=== PATIENT | female | born 1945 | race Caucasian/White ===

== ENCOUNTER → 2016-07-06 | Outpatient (CLI) | payer MEDICARE, OTHER ==
[~2016-07-06] MED LIST: ASCO-262 PO; CALC-823 PO; CHOL20003 PO; CYAN500T2 PO; FLEC50TA PO; FOLI0.4T2 PO; GLUC1CAP37 PO; LORA10TA7 PO; MAGN400C PO; OMG1KC PO; RED600TA PO; VITA400C58 PO; WRF2T PO; WRF5T PO
--- NOTE | 2016-07-07 14:17 | Diagnostic Imaging Report ---
Bilateral screening mammogram The current study was also evaluated with a Computer Aided Detection (CAD) system. Indication: Screening. No current complaints stated on the questionnaire. COMPARISON: 06/04/15. FINDINGS: The breasts are composed of scattered fibroglandular densities. There are scattered benign-appearing calcifications seen. There is a 5 mm rounded asymmetry seen in the central aspect of the left CC projection, possibly correlating with a central asymmetry on the MLO view. The right breast demonstrate no definite change. IMPRESSION: Central left breast asymmetry better seen in the CC projection. Focal compression view and ultrasound evaluation is recommended. BI-RADS 0. ACR BI-RADS Category 0: Incomplete. (Needs additional imaging evaluation). Result letter will be mailed to the patient. Note: At least 10% of breast cancer is not imaged by mammography. Dictated by: Dictated on workstation # [id number]
== END ==
LOC: RAD 14:21
PROVIDERS: ATTEND Internal Medicine
DX: Z12.31 Encounter for screening mammogram for malignant neoplasm of breast (principal)

== ENCOUNTER → 2016-07-19 | Outpatient (CLI) | payer MEDICARE, OTHER ==
--- NOTE | 2016-07-19 21:30 | Diagnostic Imaging Report ---
Exam: Ultrasound of the left breast. Indication: Abnormal mammogram. Findings: The screening mammogram performed on 07/06/16 noted asymmetric density in the midportion of the left breast. The diagnostic mammogram performed earlier today failed to show any sign of malignancy in this area. On this exam, there is no discrete solid or cystic mass visualized. I suspect that the asymmetric density seen on the screening mammogram was secondary to superimposition of the fibroglandular tissue. Even so, it may prove worthwhile to have a short-term (6 month) followup left breast mammogram for further study. Impression: 1. There is no evidence for malignancy. Recommendations as above. 2. These results were discussed with JEANETTE Paula. ACR BI-RADS Category 3: Probably benign findings. Result letter will be mailed to the patient. Note: At least 10% of breast cancer is not imaged by mammography. Dictated by: Dictated on workstation # [id number]
--- NOTE | 2016-07-19 21:38 | Diagnostic Imaging Report ---
Diagnostic left mammogram. The current study was also evaluated with a Computer Aided Detection (CAD) system. INDICATION: Abnormal screening mammogram. FINDINGS: The recent screening mammogram performed on 07/06/2016 noted a 5 mm rounded asymmetry in the central portion of the left breast. Compression and rolled views of this area showed the area of increased density is not as conspicuous. I suspect that this density is secondary to superimposition of the fibroglandular tissue. Even so, I would recommend that ultrasound be performed to better evaluate this area. IMPRESSION: There is no evidence of malignancy. Ultrasound would be recommended for further study. ACR BI-RADS Category 0: Incomplete. (Needs additional imaging evaluation). Result letter will be mailed to the patient. Note: At least 10% of breast cancer is not imaged by mammography. Dictated by: Dictated on workstation # [id number]
== END ==
LOC: RAD 13:09
PROVIDERS: ATTEND Internal Medicine
DX: R92.8 Other abnormal and inconclusive findings on diagnostic imaging of breast (principal)
CPT/HCPCS: 76641

== ENCOUNTER → 2017-03-29 | Outpatient (CLI) | payer MEDICARE, OTHER | LOC: RAD 13:58 | PROVIDERS: ATTEND Internal Medicine | DX: G25.0 Essential tremor (principal) | CPT/HCPCS: 70551 ==

== ENCOUNTER 2017-06-14 10:17 | Observation (INO) | payer MEDICARE, OTHER ==
[~2017-06-14] VITALS: Ht 167.6 cm; Wt 59.1 kg
[2017-06-14] MEDS ORDERED: NS IV 500 ML 500 ML IV ONE (10:36)
--- OUTSIDE RECORDS SUMMARY | 2017-06-14 11:08 | XMS REPORT | Continuity of Care Document ---
Author Author [facility] Organization [facility] Address Unknown Phone Unavailable Allergies Active Description Code Type Severity Reaction Onset Reported/Identified Relationship to Patient Clinical Status Yes NKANo Known Allergies NKA Miscellaneous Allergy Unknown N/A 01/07/2007 Medications There is no data. Problems Date Dx Coded Attending Type Code Diagnosis Diagnosed By 04/24/2013 RUY CUMMINGS, GLORIA Leos Ot V76.51 SCREEN MAL NEOP-COLON 06/02/2015 Ot 733.90 06/02/2015 Ot 793.80 06/02/2015 Ot V76.12 06/02/2015 Ot 610.0 06/02/2015 Ot 793.80 06/02/2015 Ot V76.12 06/02/2015 HENRY DPM, JUVENAL Q Ot 719.47 06/02/2015 HENRY DPM, JUVENAL Q Ot 729.5 06/02/2015 HENRY DPM, JUVENAL Q Ot 782.3 06/02/2015 KIM CUMMINGS, MARI Galloway Ot V72.84 06/02/2015 AUBREE RIVERA DO Ot 793.89 06/02/2015 AUBREE RIVERA DO Ot V76.12 06/02/2015 RIDDELANEY VALENZUELA ELECTROMECHANICAL ASSEMBLY TECHNICIAN Ot 793.89 06/06/2015 GLORIA REDMOND MD Ot K44.9 DIAPHRAGMATIC HERNIA WITHOUT OBSTRUCTION 06/06/2015 GLORIA REDMOND MD Ot R13.10 DYSPHAGIA, UNSPECIFIED 06/26/2015 AUBREE RIVERA DO Ot Z12.31 07/06/2016 Ot 793.80 UNSPEC ABNORMAL MAMMOGRAM 07/06/2016 Ot V76.12 OTH SCREEN MAMMO-MALIGN NEOPLASM OF ISMAEL 07/06/2016 HENRY DPM, JUVENAL Q Ot 719.47 JOINT PAIN-ANKLE 07/06/2016 HENRY DPM, JUVENAL Q Ot 729.5 PAIN IN LIMB 07/06/2016 HENRY DPM, JUVENAL Q Ot 782.3 EDEMA 07/06/2016 KIM CUMMINGS, MARI Galloway Ot V72.84 EXAM PRE-OPERATIVE NOS 07/06/2016 AUBREE RIVERA DO Ot 793.89 OTH (ABN) FINDINGS ON RADIOLOGICAL EXAMI 07/06/2016 AUBREE RIVERA DO Ot V76.12 OTH SCREEN MAMMO-MALIGN NEOPLASM OF ISMAEL 07/06/2016 DELANEY MACARIO APRN Ot 793.89 OTH (ABN) FINDINGS ON RADIOLOGICAL EXAMI 07/06/2016 AUBREE RIVERA DO Ot Z12.31 ENCNTR SCREEN MAMMOGRAM FOR MALIGNANT NE 07/06/2016 RUY CUMMINGS, GLORIA Leos Ot R13.10 DYSPHAGIA, UNSPECIFIED 07/06/2016 RUY CUMMINGS, GLORIA Leos Ot Z01.818 ENCOUNTER FOR OTHER PREPROCEDURAL EXAMIN 07/06/2016 AUBREE RIVERA DO Ot Z12.31 ENCNTR SCREEN MAMMOGRAM FOR MALIGNANT NE 07/07/2016 AUBREE RIVERA DO Ot Z12.31 ENCNTR SCREEN MAMMOGRAM FOR MALIGNANT NE 07/07/2016 AUBREE RIVERA DO Ot Z12.31 ENCNTR SCREEN MAMMOGRAM FOR MALIGNANT NE 07/19/2016 AUBREE RIVERA DO Ot R92.2 INCONCLUSIVE MAMMOGRAM 07/20/2016 AUBREE RIVERA DO Ot R92.2 INCONCLUSIVE MAMMOGRAM 07/20/2016 AUBREE RIVERA DO Ot R92.8 OTH ABN AND INCONCLUSIVE FINDINGS ON DX 07/28/2016 AUBREE RIVERA DO Ot Z12.31 ENCNTR SCREEN MAMMOGRAM FOR MALIGNANT NE 08/17/2016 AUBREE RIVERA DO Ot R92.8 OTH ABN AND INCONCLUSIVE FINDINGS ON DX 08/24/2016 MIGUEL HEATH, AUBREE Leyva Ot R92.8 OTH ABN AND INCONCLUSIVE FINDINGS ON DX 03/25/2017 Ot V76.12 OTH SCREEN MAMMO-MALIGN NEOPLASM OF ISMAEL 03/25/2017 HENRY DPM, JUVENAL Q Ot 719.47 JOINT PAIN-ANKLE 03/25/2017 HENRY DPM, JUVENAL Q Ot 729.5 PAIN IN LIMB 03/25/2017 HENRY DPM, JUVENAL Q Ot 782.3 EDEMA 03/25/2017 KIM CUMMINGSMARI Ot V72.84 EXAM PRE-OPERATIVE NOS 03/25/2017 AUBREE RIVERA DO Ot 793.89 OTH (ABN) FINDINGS ON RADIOLOGICAL EXAMI 03/25/2017 AUBREE RIVERA DO Ot V76.12 OTH SCREEN MAMMO-MALIGN NEOPLASM OF ISMAEL 03/25/2017 DELANEY MACARIO APRN Ot 793.89 OTH (ABN) FINDINGS ON RADIOLOGICAL EXAMI 03/25/2017 AUBREE RIVERA DO Ot Z12.31 ENCNTR SCREEN MAMMOGRAM FOR MALIGNANT NE 03/25/2017 GLORIA REDMOND MD Ot R13.10 DYSPHAGIA, UNSPECIFIED 03/25/2017 GLORIA REDMOND MD Ot Z01.818 ENCOUNTER FOR OTHER PREPROCEDURAL EXAMIN 03/25/2017 AUBREE RIVERA DO Ot Z12.31 ENCNTR SCREEN MAMMOGRAM FOR MALIGNANT NE 03/25/2017 AUBREE RIVERA DO Ot R92.8 OTH ABN AND INCONCLUSIVE FINDINGS ON DX 04/21/2017 AUBREE RIVERA DO, Ot G25.0 ESSENTIAL TREMOR 05/17/2017 AUBREE RIVERA DO, Ot G25.0 ESSENTIAL TREMOR Procedures There is no data. Results There is no data. Encounters ACCT No. Visit Date/Time Discharge Status Pt. Type Provider Facility Loc./Unit Complaint [id number] 03/29/2017 13:58:00 03/29/2017 23:59:59 CLS Outpatient AUBREE RIVERA DO [facility] RAD G25 [id number] 07/19/2016 13:09:00 07/19/2016 23:59:59 CLS Outpatient AUBREE RIVERA DO [facility] RAD ABNORMAL MAMMO [id number] 07/06/2016 14:21:00 07/06/2016 23:59:59 CLS Outpatient AUBREE RIVERA DO [facility] RAD SCREENING [id number] 06/06/2015 09:05:00 06/06/2015 11:15:00 DIS Outpatient GLORIA REDMOND MD [facility] SDC DYSPHASIA [id number] 06/04/2015 05:41:00 06/04/2015 23:59:59 CLS Outpatient GLORIA REDMOND MD [facility] PREOP DYSPHASIA [id number] 06/02/2015 10:44:00 06/02/2015 23:59:59 CLS Outpatient AUBREE RIVERA DO [facility] RAD SCREENING [id number] 05/30/2013 13:21:00 05/30/2013 23:59:59 CLS Outpatient DELANEY MACARIO APRN [facility] RAD ABN MAMMO [id number] 05/07/2013 10:21:00 05/07/2013 23:59:59 CLS Outpatient AUBREE RIVERA DO [facility] RAD SCREENING [id number] 04/24/2013 07:22:00 04/24/2013 10:30:00 DIS Outpatient RUY CUMMINGS, GLORIA Leos [facility] SDC SCREENING [id number] 04/19/2013 12:08:00 04/19/2013 23:59:59 CLS Outpatient KIM CUMMINGS, MARI Galloway [facility] PREOP SCREENING [id number] 04/04/2013 12:54:00 04/04/2013 23:59:59 CLS Outpatient HENRY DPM, JUVENAL Q [facility] RAD EDEMA,PAIN R FOOT/LEG [id number] 06/14/2017 10:19:00 ACT Emergency YANG MARCANO MD [facility] ER HIGH HEART RATE [id number] 06/02/2015 10:43:00 Document Registration [id number] 04/25/2012 09:18:00 Document Registration [id number] 04/21/2011 09:02:00 Document Registration [id number] 10/14/2010 10:33:00 Document Registration [id number] 10/12/2010 09:05:00 Document Registration [id number] 01/16/2010 10:01:00 Document Registration
--- NOTE | 2017-06-14 11:46 | Diagnostic Imaging Report ---
EXAMINATION: Portable upright radiograph of the chest. INDICATION: Chest pain. FINDINGS: The lungs are hyperinflated with no focal infiltrate. The heart size is normal. No effusion or pneumothorax. The mediastinum and duyen appear unremarkable. IMPRESSION: Hyperinflated clear lungs. Dictated by: Dictated on workstation # [id number]
--- NOTE | 2017-06-14 11:53 | Diagnostic Imaging Report ---
PROCEDURE: CT head without contrast. TECHNIQUE: Multiple contiguous axial images were obtained through the brain without the use of intravenous contrast. INDICATION: Fall. Head injury. COMPARISON: MRI brain without contrast 03/29/2017. FINDINGS: No intracranial hemorrhage, mass effect, hydrocephalus, or extra-axial fluid collections. No CT evidence of acute infarction. Osseous structures are intact. The visualized paranasal sinuses and mastoids are clear. IMPRESSION: No acute intracranial CT findings. Dictated by: Dictated on workstation # [id number]
[2017-06-14 12:15] LABS: BASOPHILS % (AUTO) 0 % (0-10); EOSINOPHILS # (AUTO) 0.1 10^3/uL (0.0-0.3); EOSINOPHILS % (AUTO) 1 % (0-10); LYMPHOCYTES % (AUTO) 13 % (12-44); MEAN CORPUSCULAR HEMOGLOBIN 31 PG (25-34); MEAN CORPUSCULAR HGB CONC 33 G/DL (32-36); MEAN CORPUSCULAR VOLUME 95 FL (80-99); MEAN PLATELET VOLUME 10.6 FL (7.4-10.4); MONOCYTES # (AUTO) 0.5 X 10^3 (0.0-1.0); MONOCYTES % (AUTO) 7 % (0-12); NEUTROPHILS # (AUTO) 5.7 X 10^3 (1.8-7.8); NEUTROPHILS % (AUTO) 78 % (42-75); PLATELET COUNT 251 10^3/uL (130-400); RED CELL DISTRIBUTION WIDTH 13.4 % (10.0-14.5); WHITE BLOOD COUNT 7.3 10^3/uL (4.3-11.0)
--- NOTE | 2017-06-14 12:16 | ED Cardiac General ---
History of Present Illness General Chief Complaint: Dizziness/Syncope Stated Complaint: HIGH HEART RATE Nursing Triage Note: C/O tachycardia. Onset 0130. Pt had diarrhea around 0730 with syncopal episode while on the toilet. Source: patient Exam Limitations: no limitations History of Present Illness Time seen by provider: 10:22 Initial Comments Here with report of acute onset of tachycardia this morning. Does have history of this. This started about 130. At 730, she had a syncopal episode after a diarrhea or loose stool event. She completely passed out. Her found her on the floor within seconds. She states she did not hit her head but the believes that she did just by the way that she was laying in the sound that she made when she fell. She fell from the sitting position. Denies other injury. She is on blood thinners for the tachycardia as well as history of PE and protein s deficiency. Denies breathing problems. Does complain of weakness currently. Noted that her blood pressure was lower this morning. She is on flecainide for this. She took her flecainide after breakfast this morning. Timing/Duration: 12 hours Severity: moderate Prior CP/Workup: pulmonary embolism, stress test NTG SL FINGERPRINT TECHNICIAN: No ASA po FINGERPRINT TECHNICIAN: No Associated Systoms: No Chest Pain, No Cough, No Diaphoresis, No Fever/Chills, No Nausea/Vomiting, No Shortness of Air, Syncope, Weakness Allergies and Home Medications Allergies Coded Allergies: No Known Allergies (Verified Allergy, Unknown, 01/07/07) Home Medications Ascorbate Calcium 500 Mg Tablet, 500 MG PO DAILY, (Reported) Calcium Carbonate 500 Mg Tablet, 750 MG PO DAILY WITH SUPPER, (Reported) TAKE 1 1/2 OF 500MG TAB Cholecalciferol (Vitamin D3) 2,000 Unit Capsule, 2,000 UNIT PO DAILY, (Reported) Cyanocobalamin (Vitamin B-12) 500 Mcg Tablet, 500 MCG PO DAILY, (Reported) Flecainide Acetate 50 Mg Tablet, 50 MG PO TID, (Reported) Folic Acid 0.4 Mg Tablet, 0.4 MG PO DAILY, (Reported) Glucosa Barraza 2Kcl/Chondroitin Barraza 1 Each Capsule, 1 EACH PO DAILY, (Reported) Loratadine 10 Mg Tablet, 10 MG PO DAILY, (Reported) Magnesium Oxide 400 Mg Capsule, 400 MG PO DAILY, (Reported) [place] 3 Polyunsat Fatty Acids 1,000 Mg Cap, 1,000 MG PO DAILY, (Reported) Red Yeast Rice 600 Mg Tablet, 1,200 MG PO DAILY, (Reported) TAKE 2 (600MG) TABS Vitamin E Mixed 400 Unit Capsule, 400 UNIT PO DAILY, (Reported) Warfarin Sodium 5 Mg Tablet, 2.5 MG PO DAILY@1800, (Reported) TAKE 1/2 OF 5MG TAB Review of Systems Constitutional: see HPI, No chills, No fever, weakness EENTM: No Symptoms Reported Respiratory: No Symptoms Reported Cardiovascular: No Symptoms Reported Gastrointestinal: See HPI, Diarrhea, Denies Nausea, Denies Vomiting Genitourinary: No Symptoms Reported Musculoskeletal: see HPI Skin: no symptoms reported Psychiatric/Neurological: See HPI, Weakness Endocrine: No Symptoms Reported All Other Systems Reviewed Negative Unless Noted: Yes Past Yuymvbr-Brmurb-Fjnwgc Hx Patient Social History Alcohol Use: Denies Use Recreational Drug Use: No Smoking Status: Never a Smoker Recent Foreign Travel: No Contact w/Someone Who Travel: No Recent Infectious Disease Expo: No Recent Hopitalizations: No (COLONOSCOPY) Immunizations Up To Date Date of Pneumonia Vaccine: Apr 24, 2009 Date of Influenza Vaccine: Apr 16, 2015 Surgeries History of Surgeries: Yes Respiratory History of Respiratory Disorde: No Cardiovascular History of Cardiac Disorders: Yes Neurological History of Neurological Disord: No Reproductive System Hx Reproductive Disorders: No Gastrointestinal History of Gastrointestinal Di: No Musculoskeletal History of Musculoskeletal Dis: No Endocrine History of Endocrine Disorders: No Psychosocial History of Psychiatric Problem: No Reviewed Nursing Assessment Reviewed/Agree w Nursing PMH: Yes Family Medical History Significant Family History: No Pertinent Family Hx Physical Exam Vital Signs Vital Sign - Last 12Hours 06/14/17 10:50 Temp 97.5 Pulse 120 Resp 20 B/P (MAP) 120/84 (96) O2 Delivery Room Air Capillary Refill : Less Than 3 Seconds General Appearance: No Apparent Distress, WD/WN HEENT: PERRL/EOMI, Pharynx Normal Neck: Non Tender, Supple Respiratory: Lungs Clear, Normal Breath Sounds Cardiovascular: No Murmur, Tachycardia Gastrointestinal: Non Tender, Soft Extremity: Normal Range of Motion, Non Tender Neurologic/Psychiatric: Alert, Oriented x3, No Motor/Sensory Deficits Skin: Normal Color, Warm/Dry Progress/Results/Core Measures Results/Orders Lab Results Laboratory Tests Test 06/14/17 11:50 Range/Units White Blood Count 7.3 4.3-11.0 10^3/uL Red Blood Count 4.10 L 4.35-5.85 10^6/uL Hemoglobin 12.8 11.5-16.0 G/DL Hematocrit 39 35-52 % Mean Corpuscular Volume 95 80-99 FL Mean Corpuscular Hemoglobin 31 25-34 PG Mean Corpuscular Hemoglobin Concent 33 32-36 G/DL Red Cell Distribution Width 13.4 10.0-14.5 % Platelet Count 251 130-400 10^3/uL Mean Platelet Volume 10.6 H 7.4-10.4 FL Neutrophils (%) (Auto) 78 H 42-75 % Lymphocytes (%) (Auto) 13 12-44 % Monocytes (%) (Auto) 7 0-12 % Eosinophils (%) (Auto) 1 0-10 % Basophils (%) (Auto) 0 0-10 % Neutrophils # (Auto) 5.7 1.8-7.8 X 10^3 Lymphocytes # (Auto) 1.0 1.0-4.0 X 10^3 Monocytes # (Auto) 0.5 0.0-1.0 X 10^3 Eosinophils # (Auto) 0.1 0.0-0.3 10^3/uL Basophils # (Auto) 0.0 0.0-0.1 10^3/uL Prothrombin Time 21.6 H 12.2-14.7 SEC INR Comment 1.9 H 0.8-1.4 Activated Partial Thromboplast Time 29 24-35 SEC Sodium Level 141 135-145 MMOL/L Potassium Level 4.3 3.6-5.0 MMOL/L Chloride Level 106 98-107 MMOL/L Carbon Dioxide Level 28 21-32 MMOL/L Anion Gap 7 5-14 MMOL/L Blood Urea Nitrogen 22 H 7-18 MG/DL Creatinine 0.71 0.60-1.30 MG/DL Estimat Glomerular Filtration Rate > 60 BUN/Creatinine Ratio 31 Glucose Level 74 70-105 MG/DL Calcium Level 9.1 8.5-10.1 MG/DL Magnesium Level 2.1 1.8-2.4 MG/DL Total Bilirubin 0.6 0.1-1.0 MG/DL Aspartate Amino Transf (AST/SGOT) 23 5-34 U/L Alanine Aminotransferase (ALT/SGPT) 16 0-55 U/L Alkaline Phosphatase 87 40-136 U/L Myoglobin 46.6 10.0-92.0 NG/ML Troponin I < 0.30 <0.30 NG/ML Total Protein 6.3 L 6.4-8.2 GM/DL Albumin 3.8 3.2-4.5 GM/DL My Orders Orders - YANG MARCANO MD Ekg Tracing (06/14/17 10:21) Cbc With Automated Diff (06/14/17 10:36) Magnesium (06/14/17 10:36) Chest 1 View, Ap/Pa Only (06/14/17 10:36) Cardiac Profile 1 (06/14/17 10:36) Comprehensive Metabolic Panel (06/14/17 10:36) Myoglobin Serum (06/14/17 10:36) Protime With Inr (06/14/17 10:36) Partial Thromboplastin Time (06/14/17 10:36) O2 (06/14/17 10:36) Monitor-Rhythm Ecg Trace Only (06/14/17 10:36) Lipid Panel (06/15/17 06:00) Saline Lock/Iv-Start (06/14/17 10:36) Ns Iv 500 Ml (Sodium Chloride 0.9%) (06/14/17 10:36) Ct Head Wo (06/14/17 10:57) Metoprolol Tartrate Injection (Lopressor (06/14/17 12:30) Medications Given in ED Current Medications Medications Dose Ordered Sig/Yeimi Route Start Time Stop Time Status Last Admin Dose Admin Metoprolol Tartrate 5 mg ONCE ONCE IV 06/14/17 12:30 06/14/17 12:31 DC 06/14/17 12:34 5 MG Sodium Chloride 500 ml @ 0 mls/hr Q0M ONCE IV 06/14/17 10:36 06/14/17 10:38 DC 06/14/17 10:50 0 MLS/HR Vital Signs/I&O Vital Sign - Last 12Hours 06/14/17 10:50 Temp 97.5 Pulse 120 Resp 20 B/P (MAP) 120/84 (96) O2 Delivery Room Air Blood Pressure Mean: 96 Progress Note : Progress Note Seen and evaluated. IV, labs, EKG and chest x-ray ordered. No ASA as patient does not have chest pain. She is on Coumadin. CT head ordered. Monitor patient. CT and chest x-ray are negative. Labs look okay. Patient still a little wobbly when standing. I did speak with Dr. Peña and he is recommending Lopressor 5 mg IV. This was ordered. Her rate came down briefly but then returned back to the upper one teens. I did discuss all the findings and concerns with the patient and family. I do have concerns related to the need for adjustments of her medications. She has agreed to observation admission. I did discuss the case with Dr. Valdes at 1321. She will admit the patient, observation status with Dr. Peña on consult. ECG Initial ECG Impression Date: Jun 14, 2017 Initial ECG Impression Time: 10:21 Initial ECG Rate: 119 Initial ECG Rhythm: S.Tach Comment Sinus tachycardia with inferior Q waves. No evidence of ST elevation MN. Normal axis. No previous available for comparison. Interpreted by me. Diagnostic Imaging Diagonstic Imaging: CT Plain Films/CT/US/NM/MRI: head Comments [facility] [place], [place] NAME: REKHA SHETH [facility] REC#: [id number] PT STATUS: REG ER : 1945 PHYSICIAN: YANG MARCANO MD ADMIT DATE: 06/14/17/ER Draft Date of Exam:06/14/17 CT HEAD WO PROCEDURE: CT head without contrast. TECHNIQUE: Multiple contiguous axial images were obtained through the brain without the use of intravenous contrast. INDICATION: Fall. Head injury. COMPARISON: MRI brain without contrast 03/29/2017. FINDINGS: No intracranial hemorrhage, mass effect, hydrocephalus, or extra-axial fluid collections. No CT evidence of acute infarction. Osseous structures are intact. The visualized paranasal sinuses and mastoids are clear. IMPRESSION: No acute intracranial CT findings. Dictated on workstation # [id number] Dict: 06/14/17 1150 Trans: 06/14/17 1152 [id number] Interpreted by: HELADIO OLIVEIRA MD Electronically signed by: Diagonstic Imaging: Xray Plain Films/CT/US/NM/MRI: chest Comments NAME: REKHA SHETH [facility] REC#: [id number] PT STATUS: REG ER : 1945 PHYSICIAN: YANG MARCANO MD ADMIT DATE: 06/14/17/ER Signed Date of Exam: 06/14/17 CHEST 1 VIEW, AP/PA ONLY EXAMINATION: Portable upright radiograph of the chest. INDICATION: Chest pain. FINDINGS: The lungs are hyperinflated with no focal infiltrate. The heart size is normal. No effusion or pneumothorax. The mediastinum and duyen appear unremarkable. IMPRESSION: Hyperinflated clear lungs. Dictated by: Dictated on workstation # [id number] Dict: 06/14/17 1139 Trans: 06/14/17 1157 Interpreted by: ALPHONSE JENKINS MD Electronically signed by: ALPHONSE JENKINS MD 06/14/17 1157 Departure Communication (Admissions) Time/Spoke to Admitting Phy: 13:21 Time/Spoke to Consulting Phy: 12:12 Impression Impression: Primary Impression: Tachycardia, paroxysmal Additional Impression: Syncope Qualified Codes: R55 - Syncope and collapse Disposition: ADMITTED INPATIENT Condition: Stable Admissions Decision to Admit Reason: Admit from ER (General) Decision to Admit/Date: Jun 14, 2017 Time/Decision to Admit Time: 13:21 Departure-Patient Inst. Referrals: AUBREE RIVERA DO (PCP/Family) Primary Care Physician YANG MARCANO MD Jun 14, 2017 12:16
[2017-06-14 12:25] LABS: INR 1.9 (0.8-1.4); PROTHROMBIN TIME PATIENT 21.6 SEC (12.2-14.7)
[2017-06-14] MEDS ORDERED: meTOprolol 5 MG/5 ML (LOPRESSOR) VIAL IV ONE (12:30)
[2017-06-14 12:34] LABS: ALANINE AMINOTRANSFERASE 16 U/L (0-55); ALBUMIN 3.8 GM/DL (3.2-4.5); ANION GAP 7 MMOL/L (5-14); ASPARTATE AMINO TRANSFERASE 23 U/L (5-34); BILIRUBIN,TOTAL 0.6 MG/DL (0.1-1.0); BLOOD UREA NITROGEN 22 MG/DL (7-18); BUN/CREATININE RATIO 31; CALCIUM 9.1 MG/DL (8.5-10.1); CARBON DIOXIDE 28 MMOL/L (21-32); CHLORIDE 106 MMOL/L (98-107); CREATININE SERUM 0.71 MG/DL (0.60-1.30); GFR ESTIMATED > 60; GLUCOSE 74 MG/DL (70-105); MAGNESIUM 2.1 MG/DL (1.8-2.4); POTASSIUM 4.3 MMOL/L (3.6-5.0); SODIUM 141 MMOL/L (135-145); TOTAL PROTEIN 6.3 GM/DL (6.4-8.2)
[2017-06-14 12:43] LABS: MYOGLOBIN SERUM 46.6 NG/ML (10.0-92.0)
--- NOTE | 2017-06-14 14:01 | History & Physical-Hospitalist ---
HPI History of Present Illness: HPI/Chief Complaint Pt is a 72yoCF with a PMH of sinus tachycardia on flecainide, protein S deficiency, h/o of DVT and PE on warfarin who presented to the ER after passing out at home. She reports she awoke this morning at 0130 with her heart racing. She was able to go back to sleep but when she awoke she continued to feel palpitations. She believed her pulse to be around 100. She felt well enough to eat but quickly felt sick to her stomach and went to the bathroom where she had a large volume loose stool. She began to feel very warm and then passed out. Her reports hearing her fall and going to check on her. He found her on the ground at that time. They believe that she was out for around 5-10s. On arrival her she was found to be tachycardiac in the 120s. She was given IV Lopressor but her rate only improved to the 110s. She denies chest pain or SOB. Source: patient Date Seen 06/14/17 Time Seen by Provider: 13:25 Attending Physician Ebony Valdes MD PCP Artur Gatica DO Referring Physician Date of Admission Jun 14, 2017 at 13:24 Home Medications & Allergies Home Medications Reviewed patient Home Medication Reconciliation Form Allergies Allergies Coded Allergies NKANo Known Allergies (Verified Allergy, Unknown, 01/07/07) Past Zzextar-Uqamyc-Gsmnst Hx Patient Social History Alcohol Use: Denies Use Recreational Drug Use: No Smoking Status: Never a Smoker Recent Foreign Travel: No Contact w/other who traveled: No Recent Hopitalizations: No (COLONOSCOPY) Recent Infectious Disease Expo: No Immunizations Up To Date Date of Pneumonia Vaccine: Apr 24, 2009 Date of Influenza Vaccine: Apr 16, 2015 Surgeries Yes Respiratory No Cardiovascular Yes Neurological No Reproductive System Hx Reproductive Disorders: No Gastrointestinal No Musculoskeletal No Endocrine History of Endocrine Disorders: No Psychosocial History of Psychiatric Problem: No Reviewed Nursing Assessment Reviewed/Agree w Nursing PMH: Yes Family Medical History Significant Family History: No Pertinent Family Hx Review of Systems Constitutional: No chills, No fever EENTM: No blurred vision, No double vision, No nose congestion, No throat pain Respiratory: No cough, No dyspnea on exertion, No short of breath Cardiovascular: No chest pain, No edema, palpitations, syncope Gastrointestinal: abdominal pain, No constipation, diarrhea, No nausea, No vomiting Genitourinary: No dysuria, No frequency Musculoskeletal: No joint pain, muscle pain (calf) Skin: No lesions, No rash Psychiatric/Neurological: Denies Headache, Tingling (baseline peripheral neuropathy) Physical Exam Physical Exam Vital Signs Vital Sign - Last 12Hours 06/14/17 06/14/17 10:50 14:00 Temp 97.5 Pulse 120 Resp 20 B/P (MAP) 120/84 (96) Pulse Ox 97 O2 Delivery Room Air Capillary Refill : Less Than 3 Seconds General Appearance: No Apparent Distress, WD/WN HEENT: PERRL/EOMI, Moist Mucous Membranes Neck: Non Tender, Supple Respiratory: Lungs Clear, No Respiratory Distress Cardiovascular: No JVD, No Murmur, Tachycardia Gastrointestinal: Normal Bowel Sounds, Non Tender, Soft Extremity: Normal Capillary Refill, No Calf Tenderness Neurologic/Psychiatric: Alert, Oriented x3, Normal Mood/Affect Skin: Normal Color, Warm/Dry Results Results/Procedures Lab Laboratory Tests 06/14/17 11:50 06/15/17 05:27 Assessment/Plan Admission Diagnosis Syncope Diagnosis/Problems Diagnosis/Problems (1) Syncope Status: Acute Assessment & Plan: History of sinus tach, follows with Dr. Ruiz Will consult cardiology given symptoms prior syncopal episode Monitor on telemetry Qualifiers: Qualified Codes: R55 - Syncope and collapse (2) Tachycardia, paroxysmal Status: Acute Assessment & Plan: Monitor on telemetry Continue flecainide (3) Right calf pain Status: Chronic Assessment & Plan: History of DVT in that leg INR 1.9 Will get usg (4) Peripheral neuropathy Assessment & Plan: Continue home gabapentin Qualifiers: Qualified Codes: G62.9 - Polyneuropathy, unspecified Clinical Quality Measures AMI/AHF: ASA po Prior to arrival: EBONY Lara MD Jun 14, 2017 14:01
--- OUTSIDE RECORDS SUMMARY | 2017-06-14 14:28 | XMS REPORT | Continuity of Care Document ---
Author Author [facility] Organization [facility] Address Unknown Phone Unavailable Allergies Active Description [...] RIVERA DO Ot V76.12 06/02/2015 RIDDELANEY VALENZUELA CERTIFIED WELDING INSPECTOR Ot 793.89 06/06/2015 GLORIA REDMOND MD Ot [...] FOR OTHER PREPROCEDURAL EXAMIN 03/25/2017 AUBREE RIVERA DO, Ot Z12.31 ENCNTR SCREEN MAMMOGRAM FOR MALIGNANT NE 03/25/2017 AUBREE RIVERA DO Ot R92.8 OTH ABN AND INCONCLUSIVE FINDINGS ON DX 04/21/2017 AUBREE RIVERA DO, Ot G25.0 ESSENTIAL TREMOR 05/17/2017 AUBREE RIVERA DO, Ot G25.0 ESSENTIAL TREMOR Procedures There is no data. Results Test Result Range Complete blood count (CBC) with automated white blood cell (WBC) differential - 06/14/17 11:50 Blood leukocytes automated count (number/volume) 7.3 10*3/uL 4.3-11.0 Blood erythrocytes automated count (number/volume) 4.10 10*6/uL 4.35-5.85 Venous blood hemoglobin measurement (mass/volume) 12.8 g/dL 11.5-16.0 Blood hematocrit (volume fraction) 39 % 35-52 Automated erythrocyte mean corpuscular volume 95 [foz_us] 80-99 Automated erythrocyte mean corpuscular hemoglobin (mass per erythrocyte) 31 pg 25-34 Automated erythrocyte mean corpuscular hemoglobin concentration measurement ( mass/volume) 33 g/dL 32-36 Automated erythrocyte distribution width ratio 13.4 % 10.0-14.5 Automated blood platelet count (count/volume) 251 10*3/uL 130-400 Automated blood platelet mean volume measurement 10.6 [foz_us] 7.4-10.4 Automated blood neutrophils/100 leukocytes 78 % 42-75 Automated blood lymphocytes/100 leukocytes 13 % 12-44 Blood monocytes/100 leukocytes 7 % 0-12 Automated blood eosinophils/100 leukocytes 1 % 0-10 Automated blood basophils/100 leukocytes 0 % 0-10 Blood neutrophils automated count (number/volume) 5.7 10*3 1.8-7.8 Blood lymphocytes automated count (number/volume) 1.0 10*3 1.0-4.0 Blood monocytes automated count (number/volume) 0.5 10*3 0.0-1.0 Automated eosinophil count 0.1 10*3/uL 0.0-0.3 Automated blood basophil count (count/volume) 0.0 10*3/uL 0.0-0.1 PT panel in platelet poor plasma by coagulation assay - 06/14/17 11:50 Prothrombin time (PT) in platelet poor plasma by coagulation assay 21.6 s 12.2-14.7 INR in platelet poor plasma or blood by coagulation assay 1.9 0.8-1.4 Activated partial thromboplastin time (aPTT) in platelet poor plasma bycoagulation assay - 06/14/17 11:50 Activated partial thromboplastin time (aPTT) in platelet poor plasma bycoagulation assay 29 s 24-35 Comprehensive metabolic panel - 06/14/17 11:50 Serum or plasma sodium measurement (moles/volume) 141 mmol/L 135-145 Serum or plasma potassium measurement (moles/volume) 4.3 mmol/L 3.6-5.0 Serum or plasma chloride measurement (moles/volume) 106 mmol/L 98-107 Carbon dioxide 28 mmol/L 21-32 Serum or plasma anion gap determination (moles/volume) 7 mmol/L 5-14 Serum or plasma urea nitrogen measurement (mass/volume) 22 mg/dL 7-18 Serum or plasma creatinine measurement (mass/volume) 0.71 mg/dL 0.60-1.30 Serum or plasma urea nitrogen/creatinine mass ratio 31 NRG Serum or plasma creatinine measurement with calculation of estimated glomerular filtration rate > NRG Serum or plasma glucose measurement (mass/volume) 74 mg/dL 70-105 Serum or plasma calcium measurement (mass/volume) 9.1 mg/dL 8.5-10.1 Serum or plasma total bilirubin measurement (mass/volume) 0.6 mg/dL 0.1-1.0 Serum or plasma alkaline phosphatase measurement (enzymatic activity/volume) 87 U/L 40-136 Serum or plasma aspartate aminotransferase measurement (enzymatic activity/ volume) 23 U/L 5-34 Serum or plasma alanine aminotransferase measurement (enzymatic activity/volume ) 16 U/L 0-55 Serum or plasma protein measurement (mass/volume) 6.3 g/dL 6.4-8.2 Serum or plasma albumin measurement (mass/volume) 3.8 g/dL 3.2-4.5 Magnesium - 06/14/17 11:50 Magnesium 2.1 mg/dL 1.8-2.4 Serum or plasma troponin i.cardiac measurement (mass/volume) - 06/14/17 11:50 Serum or plasma troponin i.cardiac measurement (mass/volume) < ng/ mL <0.30 Myoglobin, serum - 06/14/17 11:50 Myoglobin, serum 46.6 ng/mL 10.0-92.0 Encounters ACCT No. Visit Date/Time Discharge Status Pt. Type Provider Facility Loc./Unit Complaint [id number] 03/29/2017 13:58:00 03/29/2017 23:59:59 CLS Outpatient AUBREE RIVERA DO [facility] RAD G25 [id number] 07/19/2016 13:09:00 07/19/2016 23:59:59 CLS Outpatient AUBREE RIVERA DO [facility] RAD ABNORMAL MAMMO [id number] 07/06/2016 14:21:00 07/06/2016 23:59:59 CLS Outpatient AUBREE RIVERA DO [facility] RAD SCREENING [id number] 06/06/2015 09:05:00 06/06/2015 11:15:00 DIS Outpatient GLORIA REDMOND MD [facility] SDC DYSPHASIA [id number] 06/04/2015 05:41:00 06/04/2015 23:59:59 CLS Outpatient GLORIA REDMOND MD [facility] PREOP DYSPHASIA [id number] 06/02/2015 10:44:00 06/02/2015 23:59:59 CLS Outpatient AUBREE RIVERA DO [facility] RAD SCREENING [id number] 05/30/2013 13:21:00 05/30/2013 23:59:59 CLS Outpatient DELANEY MACARIO APRN [facility] RAD ABN MAMMO [id number] 05/07/2013 10:21:00 05/07/2013 23:59:59 CLS Outpatient AUBREE RIVERA DO [facility] RAD SCREENING [id number] 04/24/2013 07:22:00 04/24/2013 10:30:00 DIS Outpatient RUY CUMMINGS, GLORIA Leos [facility] SDC SCREENING [id number] 04/19/2013 12:08:00 04/19/2013 23:59:59 CLS Outpatient KIM CUMMINGS, MARI [place] [facility] PREOP SCREENING [id number] 04/04/2013 12:54:00 04/04/2013 23:59:59 CLS Outpatient HENRY DPM, JUVENAL Q [facility] RAD EDEMA,PAIN R FOOT/LEG [id number] 06/14/2017 13:24:00 ACT Inpatient EBONY MAK MD [facility] 4TH TACHYCARDIA,SYNCOPE [id number] 06/02/2015 10:43:00 Document Registration [id number] 04/25/2012 09:18:00 Document Registration [id number] 04/21/2011 09:02:00 Document Registration [id number] 10/14/2010 10:33:00 Document Registration [id number] 10/12/2010 09:05:00 Document Registration [id number] 01/16/2010 10:01:00 Document Registration
[2017-06-14] MEDS ORDERED: GABA600T2 PO (14:42)
[2017-06-14] MEDS ORDERED: WARF5TAB8 PO (14:42)
[2017-06-14 14:45] VITALS: BP 141/63
[2017-06-14] MEDS: NS IV 1000 ML 1,000 ML IV SCH (15:13)
[2017-06-14] MEDS ORDERED: PATIENT MAY USE OWN MEDS, ALL MC SCH (17:15)
--- NOTE | 2017-06-14 17:27 | Diagnostic Imaging Report ---
PROCEDURE: US right lower extremity venous. TECHNIQUE: Multiple real-time grayscale images were obtained over the right lower extremity in various projections. Additional duplex Doppler and color Doppler images were also obtained. INDICATION: Right leg pain The veins in the right leg are compressible and have normal spontaneous and augmented flow. IMPRESSION: Negative venous Doppler, right leg. Dictated by: Dictated on workstation # [id number]
[2017-06-14] MEDS: GABAPENTIN 600 MG (NEURONTIN) TAB PO SCH (18:59)
[2017-06-14 20:00] VITALS: BP 106/53
--- NOTE | 2017-06-14 20:33 | Consultation-Cardiology ---
HPI-Cardiology Cardiology Consultation: Date of Consultation 06/14/17 Date of Admission Attending Physician Estela Valdes MD Admitting Physician Artur Gatica DO Consulting Physician Laverne PEÑA MD HPI: Time Seen by Provider: 18:00 Chief Complaint: Tachycardia This is a 72-year-old lady who has history of polyneuropathy, protein S deficiency, history of DVT and PE on warfarin, history of tachycardia on flecainide. 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 She was not feeling very well. She went to the restroom and had diarrhea. Immediately post stool she passed out. She presented to the ER and was still tachycardic. She denies chest pain, shortness of breath, she has history of palpitations. Review of Systems-Cardiology Review of Systems Eyes: No As described under HPI, No no symptoms reported, No blindness, No blurred vision, No contact lenses, No drainage, No decreased acuity, No foreign body sensation, No glasses, No inflammation, No pain, No photophobia, No previous injury, No shadows, No tunnel vision, No other, No vision change Ears/Nose/Throat: No As described under HPI, No no symptoms reported, No chronic hearing loss, No epistaxis, No ear discharge, No ear pain, No loose teeth, No mouth pain, No mouth swelling, No nasal drainage, No nose pain, No recent hearing loss, No throat pain, No throat swelling, No ulcerations, No other Respiratory: No no symptoms reported, No As described under HPI, No cough, No orthopnea, No shortness of breath, No SOB with excertion, No SOB at rest, No stridor, No wheezing, No other Cardiovascular: irregular heart rate, palpitations, syncope Gastrointestinal: nausea/vomiting/diarrhea Genitourinary: No no symptoms reported, No As described under HPI, No burning, No dysuria, No discharge, No frequency, No flank pain, No hematuria, No incontinence, No pain, No urgency, No other, No urine frequency changes, No urine coloration changes Musculoskeletal: No no symptoms reported, No As describe under HPI, No back pain, No gout, No joint pain, No joint swelling, No muscle pain, No muscle stiffness, No neck pain, No other Skin: No no symptoms reported, No As described under HPI, No change in color, No change in hair/nails, No dryness, No lesions, No lumps, No rash, No other, No skin related problems, No ulcerations, No rash on exposed areas, No ulcerations on exposed areas Psychiatric/Neurological: No no symptoms reported, No As described under HPI, No anxiety, No depression, No emotional problems, No headache, No numbness, No pre-existing deficit, No seizure, No tingling, No tremors, No weakness, No other , No focal weakness, No syncope All Other Systems Reviewed Negative Unless Noted: Yes VCY-Kuugpt-Unqbni Hx Patient Social History Alcohol Use: Occasionally Uses Recreational Drug Use: No Smoking Status: Never a Smoker Recent Foreign Travel: No Recent Infectious Disease Expo: No Hospitalization with Isolation: Denies Physical Abuse Screen: No Sexual Abuse: No Immunizations Up To Date Date of Pneumonia Vaccine: Mar 27, 2017 Date of Influenza Vaccine: Mar 27, 2017 Past Medical History PMH As described under Assessment. Allergies and Home Medications Allergies Coded Allergies: NKANo Known Allergies (Verified Allergy, Unknown, 01/07/07) Home Medications Cholecalciferol (Vitamin D3) 2,000 Unit Capsule, 2,000 UNIT PO DAILY, (Reported) Cyanocobalamin (Vitamin B-12) 500 Mcg Tablet, 500 MCG PO DAILY, (Reported) Flecainide Acetate 50 Mg Tablet, 50 MG PO TID, (Reported) Gabapentin 600 Mg Tablet, 900 MG PO BID, (Reported) TAKES 1 & 1/2 OF A (600 MG) TABLET Glucosa Barraza 2Kcl/Chondroitin Barraza 1 Each Capsule, 1 TAB PO DAILY, (Reported) Loratadine 10 Mg Tablet, 10 MG PO HS, (Reported) Magnesium Oxide 400 Mg Capsule, 400 MG PO DAILY, (Reported) [place] 3 Polyunsat Fatty Acids 1,000 Mg Cap, 1,000 MG PO DAILY, (Reported) Red Yeast Rice 600 Mg Tablet, 600 MG PO 1130,1800, (Reported) Warfarin Sodium 5 Mg Tablet, 2.5 MG PO HS, (Reported) TAKES 1/2 OF A (5 MG) TABLET Physical Exam-Cardiology Physical Exam Vital Signs/I&O Vital Sign - Last 12Hours 06/14/17 06/14/17 06/14/17 06/14/17 10:50 14:00 14:45 15:00 Temp 97.5 97.5 97.9 Pulse 120 72 69 Resp 20 18 20 B/P (MAP) 120/84 (96) 141/63 (89) Pulse Ox 97 94 O2 Delivery Room Air Room Air Nasal Cannula 06/14/17 19:03 Pulse 72 Capillary Refill : Less Than 3 Seconds Constitutional: No appears stated age, No AAO x 3, No apparent distress, No PERRL, No well-developed, No well-nourished, No other HEENT: No PERRL, No normal ENT inspection, No TMs normal, No pharynx normal, No scleral icterus (R), No scleral icterus (L), No pale conjunctivae (R), No pale conjunctivae (L), No photophobia, No TM abnormal (R), No TM abnormal (L), No pharyngeal erythema, No tonsillar exudate, No other, No discharge, No EOMI, No hearing is well preserved, No hard of hearing, No oral hygience is good, No ulceration, No xanthelasmas are seen Neck: No non-tender, No full range of motion, No supple, No normal inspection, No carotid bruit, No limited range of motion, No lymphadenopathy (R), No lymphadenopathy (L), No tender lateral, No tender midline, No thyromegaly, No other, No carotid pulses are 2 + bilaterally, No with good upstrokes Respiratory: No accessory muscle use, No respiratory distress, No chest tender , No chest expansion is symmetric, No chest is bilaterally symmetric, No lungs clear to percussion, No lungs clear to auscultation, No crackles, No rhonchi, No rales, No stridor, No wheezing, No pleural rub, No other Cardiovascular: regular rate-rhythm, S1 and S2 Gastrointestinal: No tender, No soft, No round, No distended, No pulsatile mass , No organomegaly, No guarding, No rebound, No tenderness, No hernia, No mass, No audible bowel sounds, No abnormal bowel sounds, No abdominal bruits, No spleenomegaly, No other Rectal: deferred Extremities: No normal range of motion, No non-tender, No normal inspection, No pedal edema, No calf tenderness, No normal capillary refill, No pelvis stable , No calf tenderness, No inflammation, No pedal edema, No slow capillary refill , No swelling, No other, No abrasion, No clubbing, No cyanosis, No ecchymosis, No laceration, No no lower extremity edema bilateral, No significant edema, No tenderness, No wound Neurologic/Psychiatric: No lead section supervisor II-XII nml as tested, No no motor/sensory deficits, No alert, No normal mood/affect, No oriented x 3, No abnormal cerebellar tests, No abnormal lead section supervisor II-XII, No abnormal gait, No aphasia, No EOM palsy, No facial droop, No motor weakness, No sensory deficit, No depressed affect, No disoriented x 3, No other, No grossly intact, No power is 5/5 both on sides Skin: No normal color, No warm/dry, No cyanosis, No cool, No diaphoresis, No damp, No ecchymosis, No jaundice, No mottled, No pallor, No rash, No tattoos/ piercings, No ulcerations, No rash on exposed areas, No ulcerations on exposed areas, No other Lymphatic: No no adenopathy, No axilla node tender (R), No axilla node tender ( L), No inguinal node tender (R), No inguinal node tender (L), No other Data Review Labs Laboratory Tests 06/14/17 11:50: White Blood Count 7.3, Red Blood Count 4.10L, Hemoglobin 12.8, Hematocrit 39, Mean Corpuscular Volume 95, Mean Corpuscular Hemoglobin 31, Mean Corpuscular Hemoglobin Concent 33, Red Cell Distribution Width 13.4, Platelet Count 251, Mean Platelet Volume 10.6H, Neutrophils (%) (Auto) 78H, Lymphocytes (%) (Auto) 13, Monocytes (%) (Auto) 7, Eosinophils (%) (Auto) 1, Basophils (%) (Auto) 0, Neutrophils # (Auto) 5.7, Lymphocytes # (Auto) 1.0, Monocytes # (Auto) 0.5, Eosinophils # (Auto) 0.1, Basophils # (Auto) 0.0, Prothrombin Time 21.6H, INR Comment 1.9H, Activated Partial Thromboplast Time 29, Sodium Level 141, Potassium Level 4.3, Chloride Level 106, Carbon Dioxide Level 28, Anion Gap 7, Blood Urea Nitrogen 22H, Creatinine 0.71, Estimat Glomerular Filtration Rate > 60, BUN/Creatinine Ratio 31, Glucose Level 74, Calcium Level 9.1, Magnesium Level 2.1, Total Bilirubin 0.6, Aspartate Amino Transf (AST/SGOT) 23, Alanine Aminotransferase (ALT/SGPT) 16, Alkaline Phosphatase 87, Myoglobin 46.6, Troponin I < 0.30, Total Protein 6.3L, Albumin 3.8 ECG Impression ECG Comment Atrial flutter on admission. QRS duration 84 ms, QTc interval 366 ms, axis QRS 76.. Currently in sinus rhythm. A/P-Cardiology Assessment/Admission Diagnosis Tachycardia, paroxysmal atrial flutter, Diarrhea, Syncope, Protein S deficiency, history of DVT and PE. Polyneuropathy. Plan When I saw the patient she had already converted to sinus rhythm. Admission EKG shows atrial flutter with heart rate of 120 BPM. 2-1 AV block with atrial flutter is noted. The slow rate is likely secondary to flecainide. We will add beta talib. Continue warfarin therapy for protein S deficiency with history of DVT and pulmonary embolism. Polyneuropathy. Continue gabapentin. Immediately post diarrhea syncope: Likely vasovagal in nature. However other etiologies need to be ruled out. Continue telemetry. Discharged with an event monitor. Request echocardiogram. Thank you for your consultation. Please call me if you have any questions. Mike Peña MD, FACP, FACC, FSCAI, FHRS, CCDS Interventional Cardiology Cardiac Electrophysiology Vascular Medicine and Endovascular Interventions Clinical Quality Measures AMI/AHF: ASA po Prior to arrival: No DVT/VTE Risk/Contraindication: Risk Factor Score Per Nursin RFS Level Per Nursing on Admit: 4+=Very High Laverne PEÑA MD Jun 14, 2017 8:33 pm
[2017-06-14] MEDS ORDERED: WARFARIN 5 MG PO SCH (21:00)
[2017-06-14] MEDS: FLECAINIDE 50 MG TAB PO SCH (21:06)
[2017-06-15] VITALS: BP 114/59
[2017-06-15 04:00] VITALS: BP 132/70
[2017-06-15] MEDS: NS IV 1000 ML 1,000 ML IV SCH (04:06)
[2017-06-15 05:55] LABS: BASOPHILS % (AUTO) 1 % (0-10); EOSINOPHILS # (AUTO) 0.1 10^3/uL (0.0-0.3); EOSINOPHILS % (AUTO) 3 % (0-10); LYMPHOCYTES # (AUTO) 1.7 X 10^3 (1.0-4.0); LYMPHOCYTES % (AUTO) 35 % (12-44); MEAN CORPUSCULAR HEMOGLOBIN 31 PG (25-34); MEAN CORPUSCULAR HGB CONC 33 G/DL (32-36); MEAN CORPUSCULAR VOLUME 95 FL (80-99); MEAN PLATELET VOLUME 10.3 FL (7.4-10.4); MONOCYTES # (AUTO) 0.5 X 10^3 (0.0-1.0); MONOCYTES % (AUTO) 10 % (0-12); NEUTROPHILS # (AUTO) 2.4 X 10^3 (1.8-7.8); NEUTROPHILS % (AUTO) 51 % (42-75); PLATELET COUNT 227 10^3/uL (130-400); RED BLOOD COUNT 3.73 10^6/uL (4.35-5.85); RED CELL DISTRIBUTION WIDTH 13.7 % (10.0-14.5); WHITE BLOOD COUNT 4.8 10^3/uL (4.3-11.0)
[2017-06-15 06:05] LABS: PROTHROMBIN TIME PATIENT 22.9 SEC (12.2-14.7)
[2017-06-15 06:18] LABS: ANION GAP 6 MMOL/L (5-14); BLOOD UREA NITROGEN 18 MG/DL (7-18); BUN/CREATININE RATIO 30; CALCIUM 8.6 MG/DL (8.5-10.1); CARBON DIOXIDE 26 MMOL/L (21-32); CHLORIDE 112 MMOL/L (98-107); CHOLESTEROL 179 MG/DL (< 200); CREATININE SERUM 0.61 MG/DL (0.60-1.30); DIRECT LDL 103 MG/DL (1-129); GFR ESTIMATED > 60; GLUCOSE 91 MG/DL (70-105); POTASSIUM 4.2 MMOL/L (3.6-5.0); SODIUM 144 MMOL/L (135-145); TRIGLYCERIDES 69 MG/DL (<150); VLDL CHOLESTEROL 14 MG/DL (5-40)
[2017-06-15 08:00] VITALS: BP 154/69
[2017-06-15] MEDS: GABAPENTIN 600 MG (NEURONTIN) TAB PO SCH (08:54)
[2017-06-15] MEDS: FLECAINIDE 50 MG TAB PO SCH (08:54)
[2017-06-15] MEDS ORDERED: meTOproloL SUCCINATE 50 MG (TOPROL XL) TAB PO SCH (09:00)
[2017-06-15] MEDS ORDERED: METO-370 PO (09:28)
--- NOTE | 2017-06-15 10:25 | Cardiology Progress Note ---
Cardiology SOAP Progress Note Subjective: No further cardiac complaints. Objective: I&O/Vital Signs Vital Sign - Last 12Hours 06/15/17 06/15/17 06/15/17 04:00 08:00 10:56 Temp 97.9 98.6 Pulse 70 78 78 Resp 16 18 18 B/P (MAP) 132/70 (90) 154/69 (97) 154/69 Pulse Ox 99 99 99 O2 Delivery Room Air Room Air Room Air Intake and Output 06/15/17 00:00 Intake Total 1200 ml Balance 1200 ml Weight (Pounds): 130 Weight (Ounces): 5.0 Weight (Calculated Kilograms): 59.986316 Constitutional: No appears stated age, No AAO x 3, No apparent distress, No PERRL, No well-developed, No well-nourished, No other Respiratory: No accessory muscle use, No respiratory distress, No chest tender , No chest expansion is symmetric, No chest is bilaterally symmetric, No lungs clear to percussion, No lungs clear to auscultation, No crackles, No rhonchi, No rales, No stridor, No wheezing, No pleural rub, No other Cardiovascular: regular rate-rhythm, S1 and S2 Gastrointestional: No tender, No soft, No round, No distended, No pulsatile mass, No organomegaly, No guarding, No rebound, No tenderness, No hernia, No mass, No audible bowel sounds, No abnormal bowel sounds, No abdominal bruits, No spleenomegaly, No other Extremities: No normal range of motion, No non-tender, No normal inspection, No pedal edema, No calf tenderness, No normal capillary refill, No pelvis stable , No calf tenderness, No inflammation, No pedal edema, No slow capillary refill , No swelling, No other, No abrasion, No clubbing, No cyanosis, No ecchymosis, No laceration, No no lower extremity edema bilateral, No significant edema, No tenderness, No wound Neurologic/Psychiatric: No belt changer II-XII nml as tested, No no motor/sensory deficits, No alert, No normal mood/affect, No oriented x 3, No abnormal cerebellar tests, No abnormal belt changer II-XII, No abnormal gait, No aphasia, No EOM palsy, No facial droop, No motor weakness, No sensory deficit, No depressed affect, No disoriented x 3, No other, No grossly intact, No power is 5/5 both on sides Skin: No normal color, No warm/dry, No cyanosis, No cool, No diaphoresis, No damp, No ecchymosis, No jaundice, No mottled, No pallor, No rash, No tattoos/ piercings, No ulcerations, No rash on exposed areas, No ulcerations on exposed areas, No other Results/Procedures: Labs Laboratory Tests 06/15/17 05:27: White Blood Count 4.8, Red Blood Count 3.73L, Hemoglobin 11.7, Hematocrit 36, Mean Corpuscular Volume 95, Mean Corpuscular Hemoglobin 31, Mean Corpuscular Hemoglobin Concent 33, Red Cell Distribution Width 13.7, Platelet Count 227, Mean Platelet Volume 10.3, Neutrophils (%) (Auto) 51, Lymphocytes (%) (Auto) 35 , Monocytes (%) (Auto) 10, Eosinophils (%) (Auto) 3, Basophils (%) (Auto) 1, Neutrophils # (Auto) 2.4, Lymphocytes # (Auto) 1.7, Monocytes # (Auto) 0.5, Eosinophils # (Auto) 0.1, Basophils # (Auto) 0.0, Prothrombin Time 22.9H, INR Comment 2.0H, D-Dimer < 0.27, Sodium Level 144, Potassium Level 4.2, Chloride Level 112H, Carbon Dioxide Level 26, Anion Gap 6, Blood Urea Nitrogen 18, Creatinine 0.61, Estimat Glomerular Filtration Rate > 60, BUN/Creatinine Ratio 30, Glucose Level 91, Calcium Level 8.6, Triglycerides Level 69, Cholesterol Level 179, LDL Cholesterol Direct 103, VLDL Cholesterol 14, HDL Cholesterol 58 A/P: Assessment/Dx: Tachycardia, paroxysmal atrial flutter, Diarrhea, Syncope, Protein S deficiency, history of DVT and PE. Polyneuropathy. Plan: When I saw the patient she had already converted to sinus rhythm. Admission EKG shows atrial flutter with heart rate of 120 BPM. 2-1 AV block with atrial flutter is noted. The slow rate is likely secondary to flecainide. We will add beta talib. Continue warfarin therapy for protein S deficiency with history of DVT and pulmonary embolism. Polyneuropathy. Continue gabapentin. Immediately post diarrhea syncope: Likely vasovagal in nature. However other etiologies need to be ruled out. Continue telemetry. Discharged with an event monitor. Patient refused an event monitor. I did explain to her that syncope could be due to sinus node dysfunction and bradycardia associated with atrial flutter however the patient did not want an event monitor and refused it. Patient wants to get discharged and follow with her polysomnography technician as an outpatient. Thank you for your consultation. Please call me if you have any questions. Mike Peña MD, FACP, FACC, FSCAI, FHRS, CCDS Interventional Cardiology Cardiac Electrophysiology Vascular Medicine and Endovascular Interventions Clinical Quality Measures AMI/AHF: ASA po Prior to arrival: Laverne Pichardo MD Jun 15, 2017 10:25
[2017-06-15 10:56] VITALS: BP 154/69
--- NOTE | 2017-06-15 12:49 | Discharge Summary-Hospitalist ---
Diagnosis/Chief Complaint Date of Admission Jun 14, 2017 at 13:24 Date of Discharge Jun 15, 2017 at 10:48 Admission Diagnosis Syncope Discharge Diagnosis (1) Syncope Status: Acute Assessment & Plan: History of sinus tach, follows with Dr. Ruiz Review of EKG shows a-flutter on presentation Syncope likely vasovagal given onset during defecation Monitor on telemetry, recommended event monitor but pt declined (2) Tachycardia, paroxysmal Status: Acute Assessment & Plan: Monitor on telemetry Continue flecainide Metoprolol added, rate well controlled (3) Right calf pain Status: Chronic Assessment & Plan: History of DVT in that leg INR 1.9 Doppler neg for DVT (4) Peripheral neuropathy Assessment & Plan: Continue home gabapentin Discharge Summary Consultations Dr Peña- Cardiology Discharge Physical Examination Allergies: Coded Allergies: NKANo Known Allergies (Verified Allergy, Unknown, 01/07/07) Vitals & I&Os Vital Signs Date Time Temp Pulse Resp B/P (MAP) Pulse Ox O2 Delivery O2 Flow Rate FiO2 06/15/17 10:56 78 18 154/69 99 Room Air 06/15/17 08:00 98.6 Hospital Course Pt is a 72yoCF with a PMH of tachyarrhythmia followed by Dr Bhakta who presented to the ER due to a syncopal episode during defecation. She was found otbe in a-flutter and admitted over night. Her rhythm concerted to sinus with IV Lopressor and rate was well controlled. Cardiology was consulted and recommended event monitor but patient declined. Both I and Dr Peña discussed the risks of not wearing one including missing fatal arrhythmia and pt acknowledged those risks and still decided to forgo it. She is to follow up with her commercial marketing specialist in 2-4 weeks and with her PCP in 1 week. Labs (last 24 hrs) Laboratory Tests 06/15/17 05:27: White Blood Count 4.8, Red Blood Count 3.73L, Hemoglobin 11.7, Hematocrit 36, Mean Corpuscular Volume 95, Mean Corpuscular Hemoglobin 31, Mean Corpuscular Hemoglobin Concent 33, Red Cell Distribution Width 13.7, Platelet Count 227, Mean Platelet Volume 10.3, Neutrophils (%) (Auto) 51, Lymphocytes (%) (Auto) 35 , Monocytes (%) (Auto) 10, Eosinophils (%) (Auto) 3, Basophils (%) (Auto) 1, Neutrophils # (Auto) 2.4, Lymphocytes # (Auto) 1.7, Monocytes # (Auto) 0.5, Eosinophils # (Auto) 0.1, Basophils # (Auto) 0.0, Prothrombin Time 22.9H, INR Comment 2.0H, D-Dimer < 0.27, Sodium Level 144, Potassium Level 4.2, Chloride Level 112H, Carbon Dioxide Level 26, Anion Gap 6, Blood Urea Nitrogen 18, Creatinine 0.61, Estimat Glomerular Filtration Rate > 60, BUN/Creatinine Ratio 30, Glucose Level 91, Calcium Level 8.6, Triglycerides Level 69, Cholesterol Level 179, LDL Cholesterol Direct 103, VLDL Cholesterol 14, HDL Cholesterol 58 Pending Labs Laboratory Tests 06/15/17 05:27: White Blood Count 4.8, Red Blood Count 3.73, Hemoglobin 11.7, Hematocrit 36, Mean Corpuscular Volume 95, Mean Corpuscular Hemoglobin 31, Mean Corpuscular Hemoglobin Concent 33, Red Cell Distribution Width 13.7, Platelet Count 227, Mean Platelet Volume 10.3, Neutrophils (%) (Auto) 51, Lymphocytes (%) (Auto) 35 , Monocytes (%) (Auto) 10, Eosinophils (%) (Auto) 3, Basophils (%) (Auto) 1, Neutrophils # (Auto) 2.4, Lymphocytes # (Auto) 1.7, Monocytes # (Auto) 0.5, Eosinophils # (Auto) 0.1, Basophils # (Auto) 0.0, Prothrombin Time 22.9, INR Comment 2.0, D-Dimer < 0.27, Sodium Level 144, Potassium Level 4.2, Chloride Level 112, Carbon Dioxide Level 26, Anion Gap 6, Blood Urea Nitrogen 18, Creatinine 0.61, Estimat Glomerular Filtration Rate > 60, BUN/Creatinine Ratio 30, Glucose Level 91, Calcium Level 8.6, Triglycerides Level 69, Cholesterol Level 179, LDL Cholesterol Direct 103, VLDL Cholesterol 14, HDL Cholesterol 58 Discharge Home Medications: Active Scripts Active Metoprolol Succinate 50 Mg Tab.er.24h 50 Mg PO DAILY Reported Jantoven (Warfarin Sodium) 5 Mg Tablet 2.5 Mg PO HS TAKES 1/2 OF A (5 MG) TABLET Gabapentin 600 Mg Tablet 900 Mg PO BID TAKES 1 & 1/2 OF A (600 MG) TABLET Vitamin B-12 (Cyanocobalamin (Vitamin B-12)) 500 Mcg Tablet 500 Mcg PO DAILY Vitamin D3 (Cholecalciferol (Vitamin D3)) 2,000 Unit Capsule 2,000 Unit PO DAILY Magnesium (Magnesium Oxide) 400 Mg Capsule 400 Mg PO DAILY Fish Oil 1,000 mg Capsule (English 3 Polyunsat Fatty Acids) 1,000 Mg Cap 1,000 Mg PO DAILY Red Yeast Rice 600 Mg Tablet 600 Mg PO 1130,1800 Glucosamine & Chondroitin Cap (Glucosa Barraza 2Kcl/Chondroitin Barraza) 1 Each Capsule 1 Tab PO DAILY Loratadine 10 Mg Tablet 10 Mg PO HS Flecainide Acetate 50 Mg Tablet 50 Mg PO TID Instructions to patient/family Please see electronic discharge instructions given to patient. Clinical Quality Measures AMI/AHF: ASA po Prior to arrival: No DVT/VTE Risk/Contraindication: Risk Factor Score Per Nursin RFS Level Per Nursing on Admit: 4+=Very High Copy Copies To 1: Dr Bhakta; Laverne PEÑA MD; AUBREE RIVERA DO Problem Qualifiers (1) Syncope: Syncope type: vasovagal syncope Qualified Codes: R55 - Syncope and collapse (2) Peripheral neuropathy: Peripheral neuropathy type: polyneuropathy, unspecified Qualified Codes: G62.9 - Polyneuropathy, unspecified EBONY MAK MD Jun 15, 2017 12:49
== END 2017-06-15 09:59 | disposition home or self-care (01) ==
LOC: EDUNIT# 10:17 → ER 10:19 → 4TH 13:24 → UNDOADMOB 13:24 → EDBEDREQ 13:26 → 4TH 14:40 → UNDODISOB 06-15 10:48
PROVIDERS: ADMIT Family Medicine; ATTEND Family Medicine
DX: I47.9 Paroxysmal tachycardia, unspecified (principal); R55 Syncope and collapse; M79.661 Pain in right lower leg; G62.9 Polyneuropathy, unspecified; D68.59 Other primary thrombophilia; Z86.718 Personal history of other venous thrombosis and embolism; Z79.01 Long term (current) use of anticoagulants
CPT/HCPCS: 36415; 70450; 71010; 80048; 80053; 80061; 83735; 83874; 84484; 85025; 85379; 85610; 85730; 93005; 93041; 93306; 96361; 96374; G0378

== ENCOUNTER → 2017-09-17 | Outpatient (CLI) | payer MEDICARE, OTHER ==
[~2017-09-17] MED LIST changes: +GABA600T2 PO; +METO-370 PO; +WARF5TAB8 PO
--- NOTE | 2017-09-17 11:52 | Diagnostic Imaging Report ---
PROCEDURE: MRI lumbar spine. TECHNIQUE: Multiplanar, multisequence MRI of the lumbar spine was performed without contrast. INDICATION: Back pain. No known injury There is dextroscoliosis present. There is normal height of the lumbar vertebral bodies with no spondylolisthesis seen except for several millimeters at L3-4. There is diffuse degenerative disc and facet disease present. There is a right paracentral/posterolateral disc protrusion at L4-5. No other focal disc herniation is seen at any level. The degenerative facet changes are resulting in a [id number] central canal stenosis at L3-4. The other levels show no significant bony stenosis. There is no mass or acute bony abnormality. IMPRESSION: There is scoliosis with diffuse degenerative disc and facet disease present. There is a right paracentral disc protrusion at L4-5. There is a central canal stenosis at L3-4. Dictated by: Dictated on workstation # [id number]
== END ==
LOC: RAD 11:01
PROVIDERS: ATTEND Internal Medicine
DX: M48.061 Spinal stenosis, lumbar region without neurogenic claudication (principal); M51.36 Other intervertebral disc degeneration, lumbar region; M51.26 Other intervertebral disc displacement, lumbar region; M41.86 Other forms of scoliosis, lumbar region
CPT/HCPCS: 72148

== ENCOUNTER 2017-10-19 14:59 | Outpatient (RCR) | payer MEDICARE, OTHER | END 2017-11-07 | disposition home or self-care (01) | PROVIDERS: ATTEND Internal Medicine | DX: M25.551 Pain in right hip (principal) ==

== ENCOUNTER → 2017-12-05 | Outpatient (CLI) | payer MEDICARE, OTHER ==
--- NOTE | 2017-12-06 13:09 | Diagnostic Imaging Report ---
INDICATION: Routine screening. COMPARISON: 07/06/2016 and 06/02/2015. TECHNIQUE: 2D and 3D bilateral screening mammography was performed with CAD. FINDINGS: Both breasts are heterogeneously dense, limiting the sensitivity of mammography. The overall parenchymal pattern appears stable. There are benign calcifications bilaterally. The previously seen small nodular density centrally in the left breast is again noted but appears similar to perhaps slightly less prominent on today's exam. No spiculated masses or malignant appearing microcalcifications are seen. The axillae are unremarkable. IMPRESSION: No mammographic features suspicious for malignancy are identified. ACR BI-RADS Category 2: Benign findings. Result letter will be mailed to the patient. Note: At least 10% of breast cancer is not imaged by mammography. Dictated by: Dictated on workstation # [id number]
== END ==
LOC: RAD 14:53
PROVIDERS: ATTEND Internal Medicine
DX: Z12.31 Encounter for screening mammogram for malignant neoplasm of breast (principal)
CPT/HCPCS: 77067

== ENCOUNTER 2018-08-14 08:53 | Outpatient (RCR) | payer MEDICARE, OTHER ==
[~2018-08-14 08:53] MED LIST changes: -GABA600T2 PO; +GBPN600T PO
== END 2018-11-05 | disposition home or self-care (01) ==
LOC: CARD 08:53
PROVIDERS: ATTEND Internal Medicine Interventional Cardiology
DX: I48.3 Typical atrial flutter (principal); I48.0 Paroxysmal atrial fibrillation
CPT/HCPCS: 93270

== ENCOUNTER → 2018-12-05 | Outpatient (CLI) | payer MEDICARE, OTHER ==
--- NOTE | 2018-12-05 11:15 | Diagnostic Imaging Report ---
INDICATION: Postmenopausal state, screening for osteoporosis. COMPARISON: January 16, 2010 FINDINGS: AP Spine L1-L4: [BMD (g/cm2): 0.990] [T-Score: -1.7] [Z-Score: 0.3] [BMD Previous: 1.011] [BMD % Change: -2.1] LT Hip Neck: [BMD (g/cm2): 0.736] [T-Score: -2.2] [Z-Score: -0.1] LT Hip Total: [BMD (g/cm2):0.839] [T-Score:-1.3] [Z-Score: 0.6] [BMD Previous: 0.887] [BMD % Change: -5.4] RT Hip Neck: [BMD (g/cm2):0.759] [T-Score:-2.0] [Z-Score:0.1] RT Hip Total: [BMD (g/cm2):0.856] [T-score:-1.2] [Z-Score:0.7] [BMD Previous:0.896] [BMD % Change:-4.5] *Indicates significant change from prior examination based on 95% confidence level. World Health Organization criteria for BMD interpretation classify patients as Normal (T-score at or above -1.0), Osteopenic (T-score between -1.0 and -2.5) or Osteoporotic (T-score at or below -2.5). LIMITATIONS AND MODIFICATION: None. FRACTURE RISK (FRAX SCORE): The ten year probability of (%): Major Osteoporotic Fracture: [12.3] Hip Fracture: [3.6] IMPRESSION: 1. Osteopenia (Low bone mass). 2. No significant change in bone mineral density since prior examination. 3. See below National Osteoporosis Foundation guidelines on when to potentially initiate pharmacologic therapy. Based on the National Osteoporosis Foundation Guidelines, pharmacologic treatment should be initiated in any of the following, unless clinical conditions suggest otherwise: * Any patient with prior fragility fracture of the hip or vertebrae. A spine fracture indicates 5X risk for subsequent spine fracture and 2X risk for subsequent hip fracture. * Osteoporosis (T-score <-2.5). * Postmenopausal women and men age 50 and older with low bone mass/osteopenia (T-score between -1.0 and -2.5) by DXA and 10-year major osteoporotic fracture greater than 20% or a 10-year probability of hip fracture greater than 3%. These fracture risks are supplied above in the FRAX score, if applicable. * Clinician judgement and/or patient preferences may indicate treatment for people with 10-year fracture probabilities above or below these levels. Dictated by: Dictated on workstation # [id number]
== END ==
LOC: RAD 09:22
PROVIDERS: ATTEND Internal Medicine
DX: Z13.820 Encounter for screening for osteoporosis (principal); M85.89 Other specified disorders of bone density and structure, multiple sites; I48.91 Unspecified atrial fibrillation; I83.90 Asymptomatic varicose veins of unspecified lower extremity; Z78.0 Asymptomatic menopausal state
CPT/HCPCS: 77080

== ENCOUNTER → 2018-12-19 | Outpatient (CLI) | payer MEDICARE, OTHER ==
--- NOTE | 2018-12-19 15:36 | Diagnostic Imaging Report ---
INDICATION: Routine screening. COMPARISON: 12/05/2017 and 07/06/2016. TECHNIQUE: 2D and 3D bilateral screening mammography was performed with CAD. FINDINGS: Both breasts remain heterogeneously dense, limiting the sensitivity of mammography. There are benign calcifications present. No suspicious microcalcifications are seen. Slightly nodular densities in the far posterior and outer right breast appear similar to last year. No new mass is seen. The axillae are unremarkable. IMPRESSION: No mammographic features suspicious for malignancy are identified. ACR BI-RADS Category 2: Benign findings. Result letter will be mailed to the patient. Note: At least 10% of breast cancer is not imaged by mammography. Dictated by: Dictated on workstation # [id number]
== END ==
LOC: RAD 14:35
PROVIDERS: ATTEND Internal Medicine
DX: Z12.31 Encounter for screening mammogram for malignant neoplasm of breast (principal)
CPT/HCPCS: 77067

== ENCOUNTER → 2020-01-04 | Outpatient (CLI) | payer MEDICARE, OTHER ==
[~2020-01-04] MED LIST changes: -CYAN500T2 PO; +CYAN500T62 PO; -METO-370 PO; +METO50TA7 PO; +VITA-272 PO; -VITA400C58 PO; -WARF5TAB8 PO
--- NOTE | 2020-01-07 08:49 | Diagnostic Imaging Report ---
INDICATION: Routine screening. Comparison is made with prior mammogram from 12/19/2018 and 12/05/2017. 2-D and 3-D bilateral screening mammography was performed with CAD. Both breasts remain heterogeneous and dense, limiting the sensitivity of mammography. Fibronodular parenchymal pattern appears to be stable. There are benign calcifications. No mass or malignant appearing microcalcifications are seen. Axillae are unremarkable. IMPRESSION: BI-RADS Category 2 No mammographic features suspicious for malignancy are identified. ACR BI-RADS Category 2: Benign findings. Result letter will be mailed to the patient. Note: At least 10% of breast cancer is not imaged by mammography. Dictated by: Dictated on workstation # [id number]
== END ==
LOC: RAD 14:29
PROVIDERS: ATTEND Internal Medicine
DX: Z12.31 Encounter for screening mammogram for malignant neoplasm of breast (principal)
CPT/HCPCS: 77063; 77067

== ENCOUNTER → 2020-10-23 | Outpatient (CLI) | payer MEDICARE, OTHER ==
[~2020-10-23] MED LIST changes: -CYAN500T62 PO; +CYAN500T8 PO; -FOLI0.4T2 PO; +FOLI0.4T6 PO
--- NOTE | 2020-10-23 17:11 | Diagnostic Imaging Report ---
INDICATION: Nipple inversion. COMPARISON: Correlation is made with diagnostic mammogram earlier the same day. FINDINGS: Sonographic interrogation of the retroareolar left breast was performed. No sonographic abnormality is seen. No solid or cystic mass is detected. IMPRESSION: No sonographic abnormality is detected. ACR BI-RADS Category 1: Negative. Result letter will be mailed to the patient. Note: At least 10% of breast cancer is not imaged by mammography. Dictated by: Dictated on workstation # [id number]
--- NOTE | 2020-10-23 17:20 | Diagnostic Imaging Report ---
INDICATION: Left breast nipple retraction. COMPARISON: Correlation is made with prior mammograms from 01/04/2020 and 12/19/2018. EXAMINATION: Unilateral left 2D and 3D diagnostic mammography was performed with CAD. The current study was also evaluated with a Computer Aided Detection (CAD) system. FINDINGS: Left breast is heterogeneously dense, limiting sensitivity of mammography. There are benign calcifications in the left breast. No mass or malignant appearing microcalcifications are seen. Left axilla is unremarkable. IMPRESSION: No mammographic features suspicious for malignancy are identified. Even so, sonographic interrogation in the retroareolar left breast is recommended and will be performed today. ACR BI-RADS Category 0: Incomplete. (Needs additional imaging evaluation). Result letter will be mailed to the patient. Note: At least 10% of breast cancer is not imaged by mammography. Dictated by: Dictated on workstation # [id number]
== END ==
LOC: RAD 12:40
PROVIDERS: ATTEND Obstetrics & Gynecology
DX: N64.59 Other signs and symptoms in breast (principal)
CPT/HCPCS: 76642; 77065; G0279

== ENCOUNTER → 2021-01-15 | Outpatient (CLI) | payer MEDICARE, OTHER ==
--- NOTE | 2021-01-16 10:21 | Diagnostic Imaging Report ---
Indication: 2-D and 3-D digital screening with CAD. COMPARISON: 12/2019, 11/2018 and 11/2017 FINDINGS: There are scattered fibroglandular densities in the breasts present. There are benign type calcifications stable. No mass, architectural distortion or suspicious calcifications. IMPRESSION: Stable benign findings. BI-RADS Category 2 ACR BI-RADS Category 2: Benign findings. Result letter will be mailed to the patient. Note: At least 10% of breast cancer is not imaged by mammography. Dictated by: Dictated on workstation # [id number]
== END ==
LOC: RAD 13:45
PROVIDERS: ATTEND Internal Medicine
DX: Z12.31 Encounter for screening mammogram for malignant neoplasm of breast (principal)
CPT/HCPCS: 77063; 77067

== ENCOUNTER → 2021-08-14 | Outpatient (CLI) | payer MEDICARE, OTHER ==
--- NOTE | 2021-08-14 16:35 | Diagnostic Imaging Report ---
INDICATION: Hemoptysis. COMPARISON: 06/14/2017. FINDINGS: Frontal and lateral views of the chest demonstrate normal heart size and pulmonary vascularity. The lungs are clear. There are no signs of infiltrate, pleural effusions or pneumothoraces. The visualized osseous structures show no acute abnormalities. IMPRESSION: 1. No acute process. No signs of infiltrates, effusions or pneumothoraces. Dictated by: Dictated on workstation # [id number]
== END ==
LOC: RAD 14:31
PROVIDERS: ATTEND Internal Medicine
DX: R04.2 Hemoptysis (principal)
CPT/HCPCS: 71046

== ENCOUNTER 2021-10-20 12:08 | Observation (INO) | payer MEDICARE, OTHER ==
[~2021-10-20] VITALS: Ht 167.7 cm; Wt 55.9 kg
[2021-10-20 12:39] LABS: BASOPHILS # (AUTO) 0.1 10^3/uL (0.0-0.1); BASOPHILS % (AUTO) 1 % (0-10); EOSINOPHILS # (AUTO) 0.1 10^3/uL (0.0-0.3); EOSINOPHILS % (AUTO) 2 % (0-10); HEMATOCRIT 40 % (35-52); HEMOGLOBIN 13.1 g/dL (11.5-16.0); LYMPHOCYTES # (AUTO) 1.4 10^3/uL (1.0-4.0); LYMPHOCYTES % (AUTO) 24 % (12-44); MEAN CORPUSCULAR HEMOGLOBIN 31 pg (25-34); MEAN CORPUSCULAR HGB CONC 33 g/dL (32-36); MEAN CORPUSCULAR VOLUME 95 fL (80-99); MEAN PLATELET VOLUME 10.1 fL (9.0-12.2); MONOCYTES # (AUTO) 0.6 10^3/uL (0.0-1.0); MONOCYTES % (AUTO) 10 % (0-12); NEUTROPHILS # (AUTO) 3.7 10^3/uL (1.8-7.8); NEUTROPHILS % (AUTO) 62 % (42-75); PLATELET COUNT 250 10^3/uL (130-400); WHITE BLOOD COUNT 5.9 10^3/uL (4.3-11.0)
[2021-10-20 12:40] VITALS: BP 141/71
--- NOTE | 2021-10-20 12:40 | Diagnostic Imaging Report ---
Indication: Possible stroke. Time of Exam: 12:29 PM Correlation is made with prior chest 06/14/2017. Finding: The heart size is normal. The pulmonary vascularity is unremarkable. The lungs are clear. No infiltrate, effusion or pneumothorax is detected. Impression: No acute cardiopulmonary process is detected. Dictated by: Dictated on workstation # [id number]
--- NOTE | 2021-10-20 12:41 | Diagnostic Imaging Report ---
PROCEDURE: CT head wo r/o stroke. TECHNIQUE: Multiple contiguous axial images were obtained through the brain without the use of intravenous contrast. Auto Exposure Controls were utilized during the CT exam to meet ALARA standards for radiation dose reduction. INDICATION: Left hand weakness. Comparison made to prior head CT from 06/14/2017. Ventricles and sulci are within normal limits. No sulcal effacement or midline shift is identified. No acute intra-axial or extra-axial hemorrhage is detected. Cisterns are patent. Visualized paranasal sinuses are clear. IMPRESSION: No acute intracranial process is detected. Dictated by: Dictated on workstation # [id number]
[2021-10-20 12:43] LABS: ALBUMIN 4.1 GM/DL (3.2-4.5)
[2021-10-20 12:44] LABS: CHLORIDE 101 MMOL/L (98-107); POTASSIUM 4.5 MMOL/L (3.6-5.0); SODIUM 139 MMOL/L (135-145)
[2021-10-20 12:45] LABS: CALCIUM 9.6 MG/DL (8.5-10.1)
[2021-10-20 12:46] LABS: GLUCOSE 87 MG/DL (70-105); TOTAL PROTEIN 6.6 GM/DL (6.4-8.2)
[2021-10-20 12:47] LABS: CARBON DIOXIDE 26 MMOL/L (21-32)
[2021-10-20 12:48] LABS: FIBRIN DEGRADATION PRODUCTS <= 0.27 UG/ML (0.00-0.49); INR 2.2 (0.8-1.4); PARTIAL THROMBOPLASTIN TIME 34 SEC (24-35)
[2021-10-20 12:49] LABS: ALKALINE PHOSPHATASE 93 U/L (40-136)
[2021-10-20 12:50] LABS: CREATININE SERUM 0.84 MG/DL (0.60-1.30); GFR ESTIMATED 72
[2021-10-20 12:51] LABS: BUN/CREATININE RATIO 27
[2021-10-20 12:52] LABS: ALANINE AMINOTRANSFERASE 25 U/L (0-55)
[2021-10-20 13:54] LABS: BILIRUBIN,URINE NEGATIVE (NEGATIVE); CLARITY,URINE CLEAR; COLOR,URINE YELLOW; GLUCOSE, URINE (UA) NEGATIVE (NEGATIVE); KETONES,URINE NEGATIVE (NEGATIVE); LEUKOCYTE ESTERASE ,URINE 1+ (NEGATIVE); NITRITE,URINE NEGATIVE (NEGATIVE); PROTEIN,URINE NEGATIVE (NEGATIVE)
[2021-10-20] MEDS ORDERED: HOLD METFORMIN - RECEIVED CONTRAST 20 ML VIAL IV SCH (14:00)
[2021-10-20] MEDS ORDERED: CATHETER FLUSH 10 ML SYR IV PRN (14:00)
[2021-10-20] MEDS ORDERED: NS 100 ML (IVPB) BAG IV ONE (14:00)
[2021-10-20] MEDS ORDERED: IOHEXOL 350 MG/ML 100 ML (OMNIPAQUE 350) VIAL IV ONE (14:00)
[2021-10-20 14:13] LABS: BACTERIA,URINE NEGATIVE /HPF; SQUAMOUS EPITHELIAL CELL,UR RARE /HPF; WBC,URINE RARE /HPF
--- NOTE | 2021-10-20 14:41 | Diagnostic Imaging Report ---
PROCEDURE: CT angiography of the head and CT angiography of the neck with and without contrast. TECHNIQUE: Contiguous noncontrast images were obtained from the skull base through the vertex. After intravenous contrast administration, helical CT angiography of the neck was performed. Source data was reformatted into 3D MIP projections. Delayed post contrast acquisition was also obtained. Auto Exposure Controls were utilized during the CT exam to meet ALARA standards for radiation dose reduction. INDICATION: Left hand weakness. Concern for acute ischemia. Comparison: CT head performed earlier the same date. FINDINGS: CTA Neck: The aortic arch and origin of the great vessels is not included on this exam. The common carotid arteries and internal carotid arteries demonstrate a normal course. No evidence of stenosis or dissection in the carotid systems. There is mild luminal irregularity in the mid portion of the right ICA. The external carotid arteries are patent and unremarkable. The right vertebral artery is dominant. The origin of the right vertebral artery is seen and is unremarkable. The origin of the left vertebral artery is seen and is unremarkable. There is no focal stenosis seen within the neck. There is no dissection. The vertebral arteries are well visualized to up to the level of the basilar artery. The osseous structures of the cervical spine are unremarkable. Included views through the lung apices demonstrate no focal consolidation. CTA brain: Atherosclerotic plaque is seen in the ayala of the bilateral terminal internal carotid arteries without significant stenosis. No stenosis is seen in the bilateral anterior, middle, and posterior cerebral arteries. Hypoplasia of the right A1 segment is noted. There is origin of the right SHINGLE INSPECTOR. No evidence of aneurysm the [place]. In the posterior circulation, both of the vertebral arteries demonstrate normal opacification. Both the right and left PICA arteries are identified. The basilar artery is normal in course and caliber. The terminal branch vessels including the superior cerebellar arteries unremarkable. IMPRESSION: 1. No stenosis or aneurysm in the [place]. No large vessel occlusion. 2. No stenosis or dissection the bilateral carotid and vertebral arteries. 3. Mild luminal irregularity in the midportion of the right ICA. This appearance can be seen with fibromuscular dysplasia. No associated dissection. Recommend continued followup as indicated. Dictated by: Dictated on workstation # [id number]
--- NOTE | 2021-10-20 15:11 | ED Neurological Problem ---
General Chief Complaint: Neuro-Stroke Like Symptoms Stated Complaint: L HAND WEAKNESS/ Nursing Triage Note: ARRIVED VIA AMB TO ROOM 01 WITH COMPLAINTS OF WAKING UP AND NOT BEING ABLE TO MOVE HER LEFT HAND OR FINGERS. STATES HER LAST WELL KNOWN TIME WAS 1130 AM TODAY. Source: patient, EMS Exam Limitations: no limitations History of Present Illness Date Seen by Provider: Oct 20, 2021 Time Seen by Provider: 12:10 Initial Comments This 76-year-old woman presents to the emergency room with complaints of left hand and wrist weakness and numbness after waking up from a nap just prior to arrival. Her last known well time was 1130 when she lay down for the nap. She is on warfarin therapy because of protein S deficiency and history of DVT. She also has a more remote history of atrial fibrillation. She reports no recent episodes of atrial fibrillation. She has not seen a patrol mother since Dr. Peña moved. She is maintained on warfarin and flecainide. Dr. Gatica is her primary care provider. Patient denies any neck pain or injury, previous or present. Allergies and Home Medications Allergies Coded Allergies: Leann Known Allergies (Verified Allergy, Unknown, 01/07/07) Patient Home Medication List Home Medication List Reviewed: Yes Cholecalciferol (Vitamin D3) (Vitamin D3) 2,000 Unit Capsule, 2,000 UNIT PO DAILY, (Reported) Entered as Reported by: CHIQUITA SKINNER on 06/04/15 1243 Last Action: Reviewed Cyanocobalamin (Vitamin B-12) (Vitamin B-12) 500 Mcg Tablet, 500 MCG PO DAILY, (Reported) Entered as Reported by: CHIQUITA SKINNER on 06/04/15 1243 Last Action: Reviewed Flecainide Acetate (Flecainide Acetate) 50 Mg Tablet, 50 MG PO TID, (Reported) Entered as Reported by: CHIQUITA SKINNER on 06/04/15 1230 Last Action: Reviewed Folic Acid (Folic Acid) 0.4 Mg Tablet, 0.4 MG PO DAILY, (Reported) Entered as Reported by: OLINDA GARCIA on 10/20/21 1818 Last Action: Reviewed Gabapentin (Gabapentin) 600 Mg Tablet, 600 MG PO BID, (Reported) Entered as Reported by: MIQUEL LIVINGSTON on 06/14/17 1442 Last Action: Reviewed Glucosa Barraza 2Kcl/Chondroitin Barraza (Glucosamine & Chondroitin Cap) 1 Each Capsule, 1 TAB PO DAILY, (Reported) Entered as Reported by: CHIQUITA SKINNER on 06/04/151242 Last Action: Reviewed Magnesium Oxide (Magnesium) 400 Mg Capsule, 400 MG PO DAILY, (Reported) Entered as Reported by: CHIQUITA SKINNER on 06/04/151242 Last Action: Reviewed Metoprolol Succinate (Metoprolol Succinate) 50 Mg Tab.er.24h, 50 MG PO DAILY Prescribed by: EBONY MAK on 06/15/17927 Last Action: Reviewed Red Yeast Rice (Red Yeast Rice) 600 Mg Capsule, 1,200 MG PO DAILY, (Reported) Entered as Reported by: OLINDA GARCIA on 10/20/211817 Last Action: Reviewed Warfarin Sodium (Jantoven) 5 Mg Tablet, 2.5 MG PO HS, (Reported) Entered as Reported by: MIQUEL LIVINGSTON on 06/14/17 1442 Last Action: Reviewed [Torrance 3] , 520 MG PO DAILY, (Reported) Entered as Reported by: OLINDA GARCIA on 10/20/211817 Last Action: Reviewed Discontinued Medications Loratadine (Loratadine) 10 Mg Tablet, 10 MG PO HS, (Reported) Discontinued Reason: No Longer Taking Entered as Reported by: CHIQUITA SKINNER on 06/04/151242 Last Action: Discontinued Torrance 3 Polyunsat Fatty Acids (Fish Oil 1,000 mg Capsule) 1,000 Mg Cap, 1,000 MG PO DAILY, (Reported) Discontinued Reason: No Longer Taking Entered as Reported by: CHIQUITA SKINNER on 06/04/151242 Last Action: Discontinued Red Yeast Rice (Red Yeast Rice) 600 Mg Tablet, 600 MG PO 1130,1800, (Reported) Discontinued Reason: No Longer Taking Entered as Reported by: CHIQUITA SKINNER on 06/04/151242 Last Action: Discontinued Review of Systems Review of Systems Constitutional: no symptoms reported Eyes: No Symptoms Reported Ears, Nose, Mouth, Throat: no symptoms reported Respiratory: no symptoms reported Cardiovascular: no symptoms reported Gastrointestinal: no symptoms reported : No Musculoskeletal: see HPI Skin: no symptoms reported Psychiatric/Neurological: See HPI Endocrine: No Symptoms Reported Hematologic/Lymphatic: No Symptoms Reported Past Jegokav-Hhxtam-Ptcxxh Hx Patient Social History Tobacco Use?: No Use of E-Cig and/or Vaping dev: No Substance use?: No Alcohol Use?: Yes Alcohol type: Wine Alcohol Frequency: Rarely Seasonal Allergies Seasonal Allergies: No Past Medical History Surgeries: Yes (rk on left eye) Eye Surgery Respiratory: No Cardiac: Yes (Tachycardia) Atrial Fibrillation, Deep Vein Thrombosis Neurological: Yes Neuropathy (Right foot post DVT) : No Reproductive Disorders: No Genitourinary: No Gastrointestinal: No Musculoskeletal: No Endocrine: No HEENT: Yes Tinnitis Loss of Vision: Denies Hearing Impairment: Denies Cancer: No Psychosocial: No Integumentary: Yes (Chronic pruritus) Blood Disorders: Yes (Protein S deficiency) Adverse Reaction/Blood Tranf: No Family Medical History No Pertinent Family Hx Physical Exam Vital Signs Vital Signs - First Documented 10/20/21 12:40 Pulse 56 Resp 16 B/P (MAP) 141/71 Pulse Ox 99 Capillary Refill : Height, Weight, BMI Height: 5'6.00" Weight: 130lbs. 5.0oz. 59.943809tx; 19.00 BMI Method:Estimated General Appearance: WD/WN, thin HEENT: PERRL/EOMI, normal ENT inspection Neck: normal inspection Respiratory: lungs clear, normal breath sounds, no respiratory distress Cardiovascular: regular rate, rhythm, no edema, no murmur Gastrointestinal: non tender, soft Extremities: normal inspection, no pedal edema Neurologic/Psychiatric: environmental adviser II-XII nml as tested, alert, normal mood/affect, oriented x 3, motor weakness (Extension of the left hand is weak. She can either extend the fingers or the hand but not both. 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.), other (Paresthesia with retained sensation in the left forearm, wrist, and hand) Crainal Nerves: normal hearing, normal speech, PERRL Motor/Sensory: other (See above) Skin: normal color, warm/dry Stroke Onset of Symptoms Date of Onset of Symptoms: Oct 20, 2021 Time of Symptom Onset: 11:30 NIH Stroke Scale Assessment Level of Consciousness: 0=Alert (0), Level of Consciousness-Questions: 0=Answers both month/age (0), LOC Commands: 0=Performs both tasks (0), Visual Perkins: 0=No visual loss (0), Facial Movement (Facial Paresis): 0=Normal symmetrical mnt (0), Motor Function-Arms Right: 0=No drift (0), Motor Function-Arms Left: 0=No drift (0), Motor Function-Legs Right: 0=No drift (0), Motor Function-Legs Left: 0=No drift (0), Limb Ataxia: 0=Absent (0), Sensory: 1=Mild to Moderate loss (1), Best Language: 0=No aphasia (0), Dysarthria: 0=Normal (0), Extinction & Inattention: 0=No abnormality (0), Total: 1 IV - TPa Received IV - TPa Procedure Performed?: No Progress/Results/Core Measures Results/Orders Lab Results Laboratory Tests Test 10/20/21 12:20 10/20/21 12:43 10/20/21 13:41 Range/Units White Blood Count 5.9 4.3-11.0 10^3/uL Red Blood Count 4.25 3.80-5.11 10^6/uL Hemoglobin 13.1 11.5-16.0 g/dL Hematocrit 40 35-52 % Mean Corpuscular Volume 95 80-99 fL Mean Corpuscular Hemoglobin 31 25-34 pg Mean Corpuscular Hemoglobin Concent 33 32-36 g/dL Red Cell Distribution Width 13.8 10.0-14.5 % Platelet Count 250 130-400 10^3/uL Mean Platelet Volume 10.1 9.0-12.2 fL Immature Granulocyte % (Auto) 1 % Neutrophils (%) (Auto) 62 42-75 % Lymphocytes (%) (Auto) 24 12-44 % Monocytes (%) (Auto) 10 0-12 % Eosinophils (%) (Auto) 2 0-10 % Basophils (%) (Auto) 1 0-10 % Neutrophils # (Auto) 3.7 1.8-7.8 10^3/uL Lymphocytes # (Auto) 1.4 1.0-4.0 10^3/uL Monocytes # (Auto) 0.6 0.0-1.0 10^3/uL Eosinophils # (Auto) 0.1 0.0-0.3 10^3/uL Basophils # (Auto) 0.1 0.0-0.1 10^3/uL Immature Granulocyte # (Auto) 0.0 0.0-0.1 10^3/uL Prothrombin Time 25.0 H 12.2-14.7 SEC INR Comment 2.2 H 0.8-1.4 Activated Partial Thromboplast Time 34 24-35 SEC D-Dimer <= 0.27 0.00-0.49 UG/ML Sodium Level 139 135-145 MMOL/L Potassium Level 4.5 3.6-5.0 MMOL/L Chloride Level 101 98-107 MMOL/L Carbon Dioxide Level 26 21-32 MMOL/L Anion Gap 12 5-14 MMOL/L Blood Urea Nitrogen 23 H 7-18 MG/DL Creatinine 0.84 0.60-1.30 MG/DL Estimat Glomerular Filtration Rate 72 BUN/Creatinine Ratio 27 Glucose Level 87 70-105 MG/DL Calcium Level 9.6 8.5-10.1 MG/DL Corrected Calcium 9.5 8.5-10.1 MG/DL Total Bilirubin 1.0 0.1-1.0 MG/DL Aspartate Amino Transf (AST/SGOT) 26 5-34 U/L Alanine Aminotransferase (ALT/SGPT) 25 0-55 U/L Alkaline Phosphatase 93 40-136 U/L Troponin I < 0.028 <0.028 NG/ML Total Protein 6.6 6.4-8.2 GM/DL Albumin 4.1 3.2-4.5 GM/DL Glucometer 88 70-110 MG/DL Urine Color YELLOW Urine Clarity CLEAR Urine pH 7.0 5-9 Urine Specific [place] 1.010 L 1.016-1.022 Urine Protein NEGATIVE NEGATIVE Urine Glucose (UA) NEGATIVE NEGATIVE Urine Ketones NEGATIVE NEGATIVE Urine Nitrite NEGATIVE NEGATIVE Urine Bilirubin NEGATIVE NEGATIVE Urine Urobilinogen 0.2 < = 1.0 MG/DL Urine Leukocyte Esterase 1+ H NEGATIVE Urine RBC (Auto) NEGATIVE NEGATIVE Urine RBC NONE /HPF Urine WBC RARE /HPF Urine Squamous Epithelial Cells RARE /HPF Urine Crystals NONE /LPF Urine Bacteria NEGATIVE /HPF Urine Casts NONE /LPF Urine Mucus NEGATIVE /LPF Urine Culture Indicated NO My Orders Orders - PAUL MATHEW MD Ct Head Wo-R/O Stroke (10/20/21 12:30) Cbc With Automated Diff (10/20/21 12:30) Protime With Inr (10/20/21 12:30) Partial Thromboplastin Time (10/20/21 12:30) Comprehensive Metabolic Panel (10/20/21 12:30) Fibrin Degradation Products (10/20/21 12:30) Troponin I Bea[place]gard (10/20/21 12:30) Ua Culture If Indicated (10/20/21 12:30) Chest 1 View, Ap/Pa Only (10/20/21 12:30) Ekg Tracing (10/20/21 12:30) Nothing By Mouth (10/20/21 Lunch) Accucheck Stat ONCE (10/20/21 12:30) Ed Iv/Invasive Line Start (10/20/21 12:30) Ed Iv/Invasive Line Start (10/20/21 12:30) Vital Signs Stroke Patient Q15M (10/20/21 12:30) O2 (10/20/21 12:30) Intake & Output 06,14,22 (10/20/21 12:30) Monitor-Rhythm Ecg Trace Only (10/20/21 12:30) Dysphagia Screening Tool Q10MX1 (10/20/21 12:30) Post Thrombolytic Adminstratio (10/20/21 12:30) Lipid Panel (10/21/21 06:00) Ct Angio Head/Neck (10/20/21 13:52) Iohexol Injection (Omnipaque 350 Mg/Ml 1 (10/20/21 14:00) Received Contrast (Hold Metformin- Contr (10/20/21 14:00) Sodium Chloride Flush (Catheter Flush Sy (10/20/21 14:00) Ns (Ivpb) (Sodium Chloride 0.9% Ivpb Bag (10/20/21 14:00) Aspirin Chewable Tablet (Baby Aspirin Ch (10/20/21 15:30) Ed Admission (Communication) (10/20/21 15:31) Medications Given in ED Current Medications Medications Dose Ordered Sig/Yeimi Route Start Time Stop Time Status Last Admin Dose Admin Aspirin 81 mg ONCE ONCE PO 10/20/21 15:30 10/20/21 15:31 DC 10/20/21 15:39 81 MG Iohexol 75 ml ONCE ONCE IV 10/20/21 14:00 10/20/21 14:14 DC 10/20/21 14:23 75 ML Sodium Chloride 10 ml NEEDED PRN IV 10/20/21 14:00 10/20/21 14:23 10 ML Sodium Chloride 100 ml ONCE ONCE IV 10/20/21 14:00 10/20/21 14:14 DC 10/20/21 14:23 80 ML Vital Signs/I&O 10/20/21 12:40 Pulse 56 Resp 16 B/P (MAP) 141/71 Pulse Ox 99 FSBG Bedside Testing Finger Stick Blood Glucose: 88 Progress Progress Note : Time: 15:48 Progress Note Stroke activation was paged after initial assessment. NIH score was 1. Patient was not a tPA candidate due to low NIH stroke score and anticoagulation with warfarin with INR of 2.2. Imaging studies were grossly unremarkable. Patient had some improvement in her left hand and wrist symptoms. 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 She has paresthesia but no loss of sensation. Case was discussed with Dr. Hassan at 1518 (stroke neurologist at [facility]). She recommended admission with the addition of MRI. MRI is no longer available today but can be done in the morning. Dr. Hassan also recommended adding aspirin. Aspirin 81 mg was given in the ER. Patient did pass her dysphagia screen. We discussed CODE STATUS and she would like to remain full code at this time. Case was reviewed with Dr. Pro who is agreeable to admission. Dr. Zamora was consulted as patient does not currently follow with a patrol mother. Initial ECG Impression Date: Oct 20, 2021 Initial ECG Impression Time: 12:24 Initial ECG Rate: 54 Initial ECG Rhythm: Normal Sinus Comment Sinus rhythm with no ST elevation or depression. Incomplete right bundle branch block. No axis deviation. Diagnostic Imaging Diagonstic Imaging: Xray Plain Films/CT/US/NM/MRI: chest Comments NAME: REKHA SHETH [facility] REC#: [id number] PT STATUS: ADM Misael : 1945 PHYSICIAN: PAUL MATHEW MD ADMIT DATE: 10/20/21/ Signed Date of Exam:10/20/21 CHEST 1 VIEW, AP/PA ONLY Indication: Possible stroke. Time of Exam: 12:29 PM Correlation is made with prior chest 06/14/2017. Finding: The heart size is normal. The pulmonary vascularity is unremarkable. The lungs are clear. No infiltrate, effusion or pneumothorax is detected. Impression: No acute cardiopulmonary process is detected. Dictated by: Dictated on workstation # [id number] Dict: 10/20/21 1239 Trans: 10/20/211836 CV [id number] Interpreted by: BARBRA HENAO MD Electronically signed by: BARBRA HENAO MD 10/20/211836 Reviewed: Reviewed by Me Diagonstic Imaging: CT Plain Films/CT/US/NM/MRI: head Comments CT head viewed by me and report reviewed. CT viewed and read by 1238. See r eport below: NAME: REKHA SHETH [facility] REC#: [id number] PT STATUS: ADM Misael : 1945 PHYSICIAN: PAUL MATHEW MD ADMIT DATE: 10/20/21/4TH Signed Date of Exam:10/20/21 CT HEAD WO-R/O STROKE PROCEDURE: CT head wo r/o stroke. TECHNIQUE: Multiple contiguous axial images were obtained through the brain without the use of intravenous contrast. Auto Exposure Controls were utilized during the CT exam to meet ALARA standards for radiation dose reduction. INDICATION: Left hand weakness. Comparison made to prior head CT from 06/14/2017. Ventricles and sulci are within normal limits. No sulcal effacement or midline shift is identified. No acute intra-axial or extra-axial hemorrhage is detected. Cisterns are patent. Visualized paranasal sinuses are clear. IMPRESSION: No acute intracranial process is detected. Dictated by: Dictated on workstation # [id number] Dict: 10/20/21 1237 Trans: 10/20/211837 [facility] [id number] Interpreted by: BARBRA HENAO MD Electronically signed by: BARBRA HENAO MD 10/20/211837 Reviewed: Reviewed by Me Diagonstic Imaging: CT (Angiogram head and neck) Comments NAME: REKHA SHETH [facility] REC#: [id number] PT STATUS: REG ER : 1945 PHYSICIAN: PAUL MATHEW MD ADMIT DATE: 10/20/21/ER Signed Date of Exam:10/20/21 CT ANGIO HEAD/NECK PROCEDURE: CT angiography of the head and CT angiography of the neck with and without contrast. TECHNIQUE: Contiguous noncontrast images were obtained from the skull base through the vertex. After intravenous contrast administration, helical CT angiography of the neck was performed. Source data was reformatted into 3D MIP projections. Delayed post contrast acquisition was also obtained. Auto Exposure Controls were utilized during the CT exam to meet ALARA standards for radiation dose reduction. INDICATION: Left hand weakness. Concern for acute ischemia. Comparison: CT head performed earlier the same date. FINDINGS: CTA Neck: The aortic arch and origin of the great vessels is not included on this exam. The common carotid arteries and internal carotid arteries demonstrate a normal course. No evidence of stenosis or dissection in the carotid systems. There is mild luminal irregularity in the mid portion of the right ICA. The external carotid arteries are patent and unremarkable. The right vertebral artery is dominant. The origin of the right vertebral artery is seen and is unremarkable. The origin of the left vertebral artery is seen and is unremarkable. There is no focal stenosis seen within the neck. There is no dissection. The vertebral arteries are well visualized to up to the level of the basilar artery. The osseous structures of the cervical spine are unremarkable. Included views through the lung apices demonstrate no focal consolidation. CTA brain: Atherosclerotic plaque is seen in the ayala of the bilateral terminal internal carotid arteries without significant stenosis. No stenosis is seen in the bilateral anterior, middle, and posterior cerebral arteries. Hypoplasia of the right A1 segment is noted. 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 No evidence of aneurysm the grand traverse of [place]. In the posterior circulation, both of the vertebral arteries demonstrate normal opacification. Both the right and left PICA arteries are identified. The basilar artery is normal in course and caliber. The terminal branch vessels including the superior cerebellar arteries unremarkable. IMPRESSION: 1. No stenosis or aneurysm in the grand traverse of [place]. No large vessel occlusion. 2. No stenosis or dissection the bilateral carotid and vertebral arteries. 3. Mild luminal irregularity in the midportion of the right ICA. This appearance can be seen with fibromuscular dysplasia. No associated dissection. Recommend continued followup as indicated. Dictated by: Dictated on workstation # [id number] Dict: 10/20/21 1430 Trans: 10/20/21 1448 [facility] [id number] Interpreted by: KAYY WILLIS DO Electronically signed by: KAYY WILLIS DO 10/20/21 3547 Reviewed: Reviewed by Me CT Read Date: Oct 20, 2021 CT Read Time: 12:38 Departure Communication (Admissions) Time/Spoke to Admitting Phy: 15:30 Dr. Pro Time/Spoke to Consulting Phy: 15:40 Dr. Zamora Impression Primary Impression: Left hand weakness Additional Impressions: Protein S deficiency Anticoagulated History of atrial fibrillation Disposition: ADMITTED INPATIENT Condition: Stable Admissions Decision to Admit Reason: Admit from ER (General) Decision to Admit/Date: Oct 20, 2021 Time/Decision to Admit Time: 15:30 Departure-Patient Inst. Referrals: AUBREE GATICA DO (PCP/Family) Primary Care Physician Copy Copies To 1: AUBREE GATICA JOSHUA T MD Oct 20, 2021 15:11
[2021-10-20] MEDS ORDERED: ASPIRIN 81 MG CHEW (CHILDREN'S ASA) PO ONE (15:30)
[2021-10-20 16:54] VITALS: BP 164/80
[2021-10-20] MEDS ORDERED: hydrALAZINE (APESOLINE) 20 MG/ML VIAL IV PRN (17:15)
[2021-10-20] MEDS ORDERED: ANTACID SUSP 30 ML UDC (MYLANTA) PO PRN (17:45)
[2021-10-20] MEDS ORDERED: diphenhydrAMINE 25 MG TAB (BENADRYL) PO PRN (17:45)
[2021-10-20] MEDS ORDERED: ACETAMINOPHEN 325 MG TABLET PO PRN (17:45)
[2021-10-20] MEDS ORDERED: MELATONIN 3 MG TABLET PO PRN (17:45)
[2021-10-20] MEDS ORDERED: polyethylene glycoL POWDER 17 GM (MIRALAX) PACK PO PRN (17:45)
[2021-10-20] MEDS ORDERED: ONDANSETRON 4 MG (ZOFRAN) ORAL DISSOLVE TAB PO PRN (17:45)
[2021-10-20] MEDS ORDERED: ONDANSETRON 4 MG/2 ML (SDV) Z0FRAN IV PRN (17:45)
[2021-10-20] MEDS ORDERED: warFARin 2.5 MG (COUMADIN) TAB PO SCH (18:00)
[2021-10-20] MEDS ORDERED: FOLI0.4T6 PO (18:18)
[2021-10-20] MEDS ORDERED: RED600CA2 PO (18:18)
[2021-10-20] MEDS ORDERED: OMEGA 3 PO (18:18)
[2021-10-20 18:42] VITALS: BP 166/90
[2021-10-20 19:37] VITALS: BP 97/60
[2021-10-20] MEDS ORDERED: PATIENT MAY USE OWN MEDS, ALL MC SCH (22:00)
[2021-10-20] MEDS: GABAPENTIN 600 MG (NEURONTIN) TAB PO SCH (22:48)
[2021-10-20] MEDS: FLECAINIDE 100 MG (TAMBOCOR) TAB PO SCH (22:48)
[2021-10-20] MEDS: SENNOSIDES 8.6 MG (SENOKOT) TAB PO SCH (22:54)
[2021-10-20] MEDS: DOCUSATE SODIUM 100 MG (COLACE) CAP PO SCH (22:54)
[2021-10-20 23:47] VITALS: BP 109/54
[2021-10-21 04:13] VITALS: BP 127/71
[2021-10-21] MEDS ORDERED: KCL 20 MEQ TAB (K-DUR) PO SCH (06:00)
[2021-10-21] MEDS ORDERED: POTASSIUM CL 10MEQ/50ML IVPB 50 ML IV SCH (06:00)
[2021-10-21] MEDS ORDERED: MAGNESIUM 1 GM/100 ML IVPB 100 ML IV SCH (06:00)
[2021-10-21 06:02] LABS: INR 2.6 (0.8-1.4); PROTHROMBIN TIME PATIENT 28.1 SEC (12.2-14.7)
[2021-10-21 07:34] VITALS: BP 121/71
[2021-10-21 07:38] LABS: POTASSIUM 4.1 MMOL/L (3.6-5.0)
[2021-10-21 07:44] LABS: CREATININE SERUM 0.72 MG/DL (0.60-1.30)
[2021-10-21 07:46] LABS: MAGNESIUM 2.2 MG/DL (1.6-2.4)
[2021-10-21] MEDS ORDERED: ASPIRIN 81 MG CHEW (CHILDREN'S ASA) PO SCH (09:00)
--- NOTE | 2021-10-21 09:14 | Diagnostic Imaging Report ---
PROCEDURE: MR imaging of the brain without contrast. TECHNIQUE: Multiplanar, multisequence MR imaging of the brain was performed without contrast. INDICATION: Right hand weakness. COMPARISON: CTA head and neck 10/20/2021. FINDINGS: Punctate 3 mm focus of restricted water diffusion in the left precentral gyrus consistent with an acute to subacute infarct. No other restricted water diffusion. Nonspecific T2 hyperintensities in the supratentorial white matter are greatest in the posterior right frontal lobe. No hemosiderin deposition or evidence of intracranial hemorrhage. Moderate generalized parenchymal volume loss. Normal morphology of the major midline structures, sella, posterior fossa and cerebellar pontine angle. Normal intracranial flow voids. No hydrocephalus or extra-axial fluid collections. The orbits are negative. Mild mucosal thickening in the ethmoid sinuses. Mastoids are clear. Normal bone marrow signal. IMPRESSION: 1. Punctate acute to subacute infarct in the left precentral gyrus would correspond to right hand weakness. No intracranial hemorrhage. 2. Moderate generalized parenchymal volume loss is age appropriate. Nonspecific T2 hyperintensities are greatest in the white matter of the posterior right frontal lobe. Dictated by: Dictated on workstation # [id number]
--- NOTE | 2021-10-21 09:29 | Consultation-Cardiology ---
HPI-Cardiology Cardiology Consultation: Date of Consultation 10/21/21 Time Seen by a Provider: 09:10 Date of Admission 10-20-21 Attending Physician Karolina Pro MD Admitting Physician Artur Gatica DO Consulting Physician Tammi Zamora MD HPI: Chief Complaint: TIA vs CVA Ms. Sheth is a 76 yr old female who was admitted to [facility] from the ED with CVA vs TIA. She reports she was in her usual state of health yesterday. She states she laid down in her chair to take a nap and when she woke up she could not move her left hand. She reports she could move her arm, just not her hand. 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 She denies any other symptoms. No vision changes at that time. No facial droop. No difficulty swallowing. No difficulty with speech. She denies any c/o CP, SOB, palpitations. syncope or near syncope. No c/o LE swelling. Her daughter is at the bedside. She does report in May she had central vision loss in her right eye lasting less than an hour. She has not had any episodes since. She is on warfarin with is managed by her PCP, Dr. Gatica. Review of Systems-Cardiology Review of Systems Constitutional: No chills, No fever, No malaise Eyes: As described under HPI Ears/Nose/Throat: No epistaxis, No recent hearing loss Respiratory: As described under HPI Cardiovascular: As described under HPI Gastrointestinal: No constipation, No diarrhea, No nausea, No vomiting Genitourinary: No dysuria, No hematuria : No Musculoskeletal: no symptoms reported Skin: No rash on exposed areas, No ulcerations on exposed areas Psychiatric/Neurological: As described under HPI Hematologic: blood clots DII-Zbwunb-Mvtcnf Hx Patient Social History Smoking Status: Former Smoker Have you traveled recently?: No Alcohol Use?: Yes Pt feels they are or have been: No Immunizations Up To Date Date of Pneumonia Vaccine: Mar 27, 2017 Date of Influenza Vaccine: Mar 27, 2017 Past Medical History PMH As described under Assessment. Family Medical History Family Medical History: She reports her mother had a stroke in her 90's. She reports she has a brother who had a pulmonary embolism Allergies and Home Medications Allergies Coded Allergies: NKANo Known Allergies (Verified Allergy, Unknown, 01/07/07) Patient Home Medication List Calcium Carbonate (Calcium) 500 Mg Calcium (1250 Mg) Tablet, 500 MG PO BID, (Reported) Entered as Reported by: MAYA DALAL on 10/21/21944 Last Action: Reviewed Cholecalciferol (Vitamin D3) (Vitamin D3) 50 Mcg (2000 Unit) Tab.chew, 50 MCG PO DAILY, (Reported) Entered as Reported by: MAYA DALAL on 10/21/21944 Last Action: Reviewed Cyanocobalamin (Vitamin B-12) (Vitamin B-12) 500 Mcg Tablet, 500 MCG PO DAILY, (Reported) Entered as Reported by: CHIQUITA SKINNER on 06/04/15 124 Last Action: Reviewed Flecainide Acetate (Flecainide Acetate) 50 Mg Tablet, 50 MG PO TID, (Reported) Entered as Reported by: CHIQUITA SKINNER on 06/04/15 1230 Last Action: Reviewed Folic Acid (Folic Acid) 1 Mg Tablet, 1 MG PO DAILY, (Reported) Entered as Reported by: MAYA DALAL on 10/21/21944 Last Action: Reviewed Gabapentin (Gabapentin) 600 Mg Tablet, 900 MG PO BID, (Reported) Entered as Reported by: MIQUEL LIVINGSTON on 06/14/17 1442 Last Action: Reviewed Glucosamine Sulfate 2Kcl (Glucosamine) 1,000 Mg Tablet, 1,000 MG PO DAILY, (Reported) Entered as Reported by: MAYA DALAL on 10/21/21944 Last Action: Reviewed Magnesium Oxide (Magnesium) 400 Mg Capsule, 400 MG PO DAILY, (Reported) Entered as Reported by: CHIQUITA SKINNER on 06/04/151242 Last Action: Reviewed Metoprolol Succinate (Metoprolol Succinate) 50 Mg Tab.er.24h, 50 MG PO DAILY, (Reported) Entered as Reported by: MAYA DALAL on 10/21/21944 Last Action: Reviewed Modafinil (Modafinil) 100 Mg Tablet, 100 MG PO SUN @AM, (Reported) Entered as Reported by: MAYA DALAL on 10/21/21944 Last Action: Reviewed Modafinil (Modafinil) 100 Mg Tablet, 100 MG PO DAILY PRN for ALERTNESS/WAKEFULNESS, (Reported) Entered as Reported by: MAYA DALAL on 10/21/21944 Last Action: Reviewed [place]-3 Fatty Acids/Fish Oil ([place] 3 1,000 mg Softgel) 300 Mg-1,000 Mg Capsule, 1 EACH PO DAILY, (Reported) Entered as Reported by: MAYA DALAL on 10/21/21944 Last Action: Reviewed Red Yeast Rice (Red Yeast Rice) 600 Mg Capsule, 600 MG PO BID WITH MEALS, (Reported) Entered as Reported by: OLINDA GARCIA on 10/20/211817 Last Action: Reviewed Warfarin Sodium (Jantoven) 5 Mg Tablet, 2.5 MG PO BARRAZA,MO,TU,TH,FR @HS, (Reported) Entered as Reported by: MIQUEL LIVINGSTON on 06/14/17 144 Last Action: Reviewed Discontinued Medications Cholecalciferol (Vitamin D3) (Vitamin D3) 2,000 Unit Capsule, 2,000 UNIT PO DAILY, (Reported) Discontinued Reason: Prescription changed Entered as Reported by: CHIQUITA SKINNER on 06/04/151242 Last Action: Reviewed Folic Acid (Folic Acid) 0.4 Mg Tablet, 0.4 MG PO DAILY, (Reported) Discontinued Reason: Prescription changed Entered as Reported by: OLINDA GARCIA on 10/20/211817 Last Action: Reviewed Glucosa Barraza 2Kcl/Chondroitin Barraza (Glucosamine & Chondroitin Cap) 1 Each Capsule, 1 TAB PO DAILY, (Reported) Discontinued Reason: Prescription changed Entered as Reported by: CHIQUITA SKINNER on 06/04/151242 Last Action: Reviewed Loratadine (Loratadine) 10 Mg Tablet, 10 MG PO HS, (Reported) Discontinued Reason: No Longer Taking Entered as Reported by: CHIQUITA SKINNER on 06/04/151242 Last Action: Discontinued Metoprolol Succinate (Metoprolol Succinate) 50 Mg Tab.er.24h, 50 MG PO DAILY Discontinued Reason: Duplicate Order Prescribed by: EBONY MAK on 06/15/17927 Last Action: Discontinued [place] 3 Polyunsat Fatty Acids (Fish Oil 1,000 mg Capsule) 1,000 Mg Cap, 1,000 MG PO DAILY, (Reported) Discontinued Reason: No Longer Taking Entered as Reported by: CHIQUITA SKINNER on 06/04/151242 Last Action: Discontinued Red Yeast Rice (Red Yeast Rice) 600 Mg Tablet, 600 MG PO 1130,1800, (Reported) Discontinued Reason: No Longer Taking Entered as Reported by: CHIQUITA SKINNER on 06/04/15 1243 Last Action: Discontinued [[place] 3] , 520 MG PO DAILY, (Reported) Discontinued Reason: Duplicate Order Entered as Reported by: OLINDA GARCIA on 10/20/21 1818 Last Action: Discontinued Physical Exam-Cardiology Physical Exam Vital Signs/I&O 10/20/21 10/21/21 10/21/21 10/21/21 23:47 01:00 04:13 07:00 Temp 36.4 36.3 Pulse 51 50 60 52 Resp 18 18 B/P (MAP) 109/54 (72) 127/71 (89) Pulse Ox 95 97 O2 Delivery Room Air Room Air 10/21/21 10/21/21 07:34 08:00 Temp 36.5 Pulse 61 Resp 18 B/P (MAP) 121/71 (88) Pulse Ox 98 O2 Delivery Room Air Room Air 10/21/21 00:00 Intake Total 300 ml Output Total 300 ml Balance 0 ml Capillary Refill : Constitutional: AAO x 3, well-developed, other (thin) HEENT: PERRL, hearing is well preserved, oral hygience is good Neck: No carotid bruit; carotid pulses are 2 + bilaterally Respiratory: No accessory muscle use, No respiratory distress; chest expansion is symmetric, chest is bilaterally symmetric, lungs clear to auscultation Cardiovascular: regular rate-rhythm; No JVD; S1 and S2 Gastrointestinal: No tender; soft, round, audible bowel sounds Extremities: no lower extremity edema bilateral Neurologic/Psychiatric: other (RUE 5/5, LUE mild to mod rotary drum dyer weakness) Skin: No rash on exposed areas, No ulcerations on exposed areas Data Review Labs Laboratory Tests 10/20/21 12:20: White Blood Count 5.9, Red Blood Count 4.25, Hemoglobin 13.1, Hematocrit 40, Mean Corpuscular Volume 95, Mean Corpuscular Hemoglobin 31, Mean Corpuscular Hemoglobin Concent 33, Red Cell Distribution Width 13.8, Platelet Count 250, Mean Platelet Volume 10.1, Immature Granulocyte % (Auto) 1, Neutrophils (%) (Auto) 62, Lymphocytes (%) (Auto) 24, Monocytes (%) (Auto) 10, Eosinophils (%) (Auto) 2, Basophils (%) (Auto) 1, Neutrophils # (Auto) 3.7, Lymphocytes # (Auto) 1.4, Monocytes # (Auto) 0.6, Eosinophils # (Auto) 0.1, Basophils # (Auto) 0.1, Immature Granulocyte # (Auto) 0.0, Prothrombin Time 25.0H, INR Comment 2.2H, Activated Partial Thromboplast Time 34, D-Dimer <= 0.27, Sodium Level 139, Potassium Level 4.5, Chloride Level 101, Carbon Dioxide Level 26, Anion Gap 12, Blood Urea Nitrogen 23H, Creatinine 0.84, Estimat Glomerular Filtration Rate 72, BUN/Creatinine Ratio 27, Glucose Level 87, Calcium Level 9.6, Corrected Calcium 9.5, Total Bilirubin 1.0, Aspartate Amino Transf (AST/SGOT) 26, Alanine Aminotransferase (ALT/SGPT) 25, Alkaline Phosphatase 93, Troponin I < 0.028, Total Protein 6.6, Albumin 4.1 10/20/21 12:43: Glucometer 88 10/20/21 13:41: Urine Color YELLOW, Urine Clarity CLEAR, Urine pH 7.0, Urine Specific [place] 1.010L, Urine Protein NEGATIVE, Urine Glucose (UA) NEGATIVE, Urine Ketones NEGATIVE, Urine Nitrite NEGATIVE, Urine Bilirubin NEGATIVE, Urine Urobilinogen 0.2, Urine Leukocyte Esterase 1+H, Urine RBC (Auto) NEGATIVE, Urine RBC NONE, Urine WBC RARE, Urine Squamous Epithelial Cells RARE, Urine Crystals NONE, Urine Bacteria NEGATIVE, Urine Casts NONE, Urine Mucus NEGATIVE, Urine Culture Indicated NO 10/21/21 05:15: Sodium Level 142, Potassium Level 4.1, Chloride Level 107, Carbon Dioxide Level 26, Anion Gap 9, Blood Urea Nitrogen 19H, Creatinine 0.72, Estimat Glomerular Filtration Rate 86, BUN/Creatinine Ratio 26, Glucose Level 90, Calcium Level 9.0, Magnesium Level 2.2, Triglycerides Level 61, Cholesterol Level 188, LDL Cholesterol Direct 119, VLDL Cholesterol 12, HDL Cholesterol 53 10/21/21 05:43: Prothrombin Time 28.1H, INR Comment 2.6H Radiology NAME: REKHA SHETH [facility] REC#: [id number] PT STATUS: ADM Misael : 1945 PHYSICIAN: PAUL MATHEW MD ADMIT DATE: 10/20/21 Signed Date of Exam:10/20/21 CHEST 1 VIEW, AP/PA ONLY Indication: Possible stroke. Time of Exam: 12:29 PM Correlation is made with prior chest 06/14/2017. Finding: The heart size is normal. The pulmonary vascularity is unremarkable. The lungs are clear. No infiltrate, effusion or pneumothorax is detected. Impression: No acute cardiopulmonary process is detected. Dictated by: Dictated on workstation # [id number] Dict: 10/20/21 1239 Trans: 10/20/211836 CV [id number] Interpreted by: BARBRA HENAO MD Electronically signed by: BARBRA HENAO MD 10/20/211836 NAME: REKHA SHETH [facility] REC#: [id number] PT STATUS: ADM Misael : 1945 PHYSICIAN: PAUL MATHEW MD ADMIT DATE: 10/20/21 Signed Date of Exam:10/20/21 CT HEAD WO-R/O STROKE PROCEDURE: CT head wo r/o stroke. TECHNIQUE: Multiple contiguous axial images were obtained through the brain without the use of intravenous contrast. Auto Exposure Controls were utilized during the CT exam to meet ALARA standards for radiation dose reduction. INDICATION: Left hand weakness. Comparison made to prior head CT from 06/14/2017. Ventricles and sulci are within normal limits. No sulcal effacement or midline shift is identified. No acute intra-axial or extra-axial hemorrhage is detected. Cisterns are patent. Visualized paranasal sinuses are clear. IMPRESSION: No acute intracranial process is detected. Dictated by: Dictated on workstation # [id number] Dict: 10/20/21 1237 Trans: 10/20/211837 CV [id number] Interpreted by: BARBRA HENAO MD Electronically signed by: BARBRA HENAO MD 10/20/211837 NAME: REKHA SHETH [facility] REC#: [id number] PT STATUS: REG ER : 1945 PHYSICIAN: PAUL MATHEW MD ADMIT DATE: 10/20/21/JACINTO Signed Date of Exam:10/20/21 CT ANGIO HEAD/NECK PROCEDURE: CT angiography of the head and CT angiography of the neck with and without contrast. TECHNIQUE: Contiguous noncontrast images were obtained from the skull base through the vertex. After intravenous contrast administration, helical CT angiography of the neck was performed. Source data was reformatted into 3D MIP projections. Delayed post contrast acquisition was also obtained. Auto Exposure Controls were utilized during the CT exam to meet ALARA standards for radiation dose reduction. INDICATION: Left hand weakness. Concern for acute ischemia. Comparison: CT head performed earlier the same date. FINDINGS: CTA Neck: The aortic arch and origin of the great vessels is not included on this exam. The common carotid arteries and internal carotid arteries demonstrate a normal course. No evidence of stenosis or dissection in the carotid systems. There is mild luminal irregularity in the mid portion of the right ICA. The external carotid arteries are patent and unremarkable. The right vertebral artery is dominant. The origin of the right vertebral artery is seen and is unremarkable. The origin of the left vertebral artery is seen and is unremarkable. There is no focal stenosis seen within the neck. There is no dissection. The vertebral arteries are well visualized to up to the level of the basilar artery. The osseous structures of the cervical spine are unremarkable. Included views through the lung apices demonstrate no focal consolidation. CTA brain: Atherosclerotic plaque is seen in the ayala of the bilateral terminal internal carotid arteries without significant stenosis. No stenosis is seen in the bilateral anterior, middle, and posterior cerebral arteries. Hypoplasia of the right A1 segment is noted. 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 No evidence of aneurysm the [place]. In the posterior circulation, both of the vertebral arteries demonstrate normal opacification. Both the right and left PICA arteries are identified. The basilar artery is normal in course and caliber. The terminal branch vessels including the superior cerebellar arteries unremarkable. IMPRESSION: 1. No stenosis or aneurysm in the [place]. No large vessel occlusion. 2. No stenosis or dissection the bilateral carotid and vertebral arteries. 3. Mild luminal irregularity in the midportion of the right ICA. This appearance can be seen with fibromuscular dysplasia. No associated dissection. Recommend continued followup as indicated. 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 Gatica - therapeutic INR (2.2 on admit, 2.6 this morning) P. Atrial- Flutter - previously following with Dr. Peña - maintained on Flecainide and warfarin H/O PE H/O DVT Reports labile HTN LE neuropathy - Gabapentin Discussion and Recomendations CVA vs TIA - MRI pending Protein S deficiency with h/o PE and DVT - maintained on warfarin - therapeutic INR P.A-flutter - currently SR - continue tele - continue Flecainide Monitor lab closely Further recs will be based on her hospital course We would like to thank medical services for this consult Clinical Quality Measures Stroke: Date of last known well: Oct 20, 2021 Time of last known well: 11:30 SHAR MANRIQUE Oct 21, 2021 09:29
[2021-10-21] MEDS: SENNOSIDES 8.6 MG (SENOKOT) TAB PO SCH (09:36)
[2021-10-21] MEDS: DOCUSATE SODIUM 100 MG (COLACE) CAP PO SCH (09:36)
[2021-10-21] MEDS: GABAPENTIN 600 MG (NEURONTIN) TAB PO SCH (09:36)
[2021-10-21] MEDS: FLECAINIDE 100 MG (TAMBOCOR) TAB PO SCH (09:37)
[2021-10-21] MEDS ORDERED: FOLI1TAB33 PO (09:45)
[2021-10-21] MEDS ORDERED: GLUC100016 PO (09:45)
[2021-10-21] MEDS ORDERED: METO50TA7 PO (09:45)
[2021-10-21] MEDS ORDERED: CHOL200078 PO (09:45)
[2021-10-21] MEDS ORDERED: OMEG1CAP58 PO (09:45)
[2021-10-21] MEDS ORDERED: CALC-823 PO (09:45)
[2021-10-21] MEDS ORDERED: MODA100T27 PO ×2 (09:45)
--- NOTE | 2021-10-21 10:33 | Physical Therapy Evaluation ---
PT Evaluation-General Medical Diagnosis Admission Date Oct 20, 2021 at 15:33 Medical Diagnosis: CVA vs TIA Onset Date: Oct 20, 2021 Therapy Diagnosis Therapy Diagnosis: Gait deficit Height/Weight Height (Feet): 5 Height (Inches): 6.00 Weight (Pounds): 130 Weight (Ounces): 5.0 Precautions Precautions/Isolations: Fall Prevention, Standard Precautions Referral Physician: Dr. Pro Reason for Referral: Evaluation/Treatment Medical History Pertinent Medical History: Atrial Fib Additional Medical History DVT, Protein S Deficiency Reviewed History: Yes Social History Home: Multilevel Current Living Status: Alone Entry Into Home: Stairs With Railing PT Steps Into Home: 3 PT Steps Inside Home: 10 Prior Prior Level of Function SCALE: Activities may be completed with or without assistive devices. 0-Krrzhjdvzd-ttvciih completes the activity by him/herself with no assistance from a helper. 5-Set-up or Clean-up Assistance-helper sets up or cleans up; patient completes activity. [place] assists only prior to or following the activity. 4-Supervision or Touching Assistance-helper provides verbal cues and/or touching/steadying and/or contact guard assistance as patient completes activity. Assistance may be provided throughout the activity or intermittently. 3-Partial/Moderate Assistance-helper does LESS THAN HALF the effort. [place] lifts, holds or supports trunk or limbs, but provides less than half the effort. 2-Substantial/Maximal Assistance-helper does MORE THAN HALF the effort. [place] lifts or holds trunk or limbs and provides more than half the effort. 4-Klkvxfqke-yshkkm does ALL the effort. Patient does none of the effort to complete the activity. Or, the assistance of 2 or more helpers is required for the patient to complete the activity. If activity was not attempted, code reason: 7-Patient Refused. 9-Not Applicable-not attempted and the patient did not perform the activity before the current illness, exacerbation or injury. 10-Not Attempted due to Environmental Limitations-(lack of equipment, weather restraints, etc.). 88-Not Attempted due to Medical Conditions or Safety Concerns. Bed Mobility: 6 Transfers (B,C,W/C): 6 Gait: 6 Stairs: 6 Indoor Mobility (Ambulation): Independent Stairs: Independent Prior Devices Use: None PT Evaluation-Current Subjective Patient reports she woke up from a nap yesterday and her left hand and fingers were numb and weak. 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 Reports 0/10 pain currently, agreeable to PT evaluation. Objective Patient Orientation: Person, Place, Time, Situation ROM/Strength ROM Lower Extremities WFLs Strength Lower Extremities 4/5 bilaterally all planes Neuromuscular (Tone, Coordination, Reflexes) Tone- normal, Coordination intact, reflexes N/A Sensory Vision: Functional Hearing: Hearing Aid/Aides Sensation Right Upper Extremit: Intact Sensation Left Upper Extremity: Intact Sensation Right Lower Extremit: Intact Sensation Left Lower Extremity: Intact Transfers Roll Left to Right (QC): 6 Sit to Lying (QC): 6 Lying to Sitting/Side of Bed(Q: 6 Sit to Stand (QC): 6 Chair/Nkh-eq-Saxeb Xfer(QC): 6 Gait Does the Patient Walk?: Yes Mode of Locomotion: Walk Anticipated Mode of Locomotion: Walk Walk 10 feet (QC): 6 Walk 50 ft with 2 Turns(QC): 6 Walk 150 ft (QC): 6 Distance: 300 Gait Assistive Device: None Stairs #of Steps: 3 1 Step (curb) (QC): 6 Balance Sitting Static: Normal Sitting Dynamic: Normal Standing Static: Good Standing Dynamic: Good Assessment/Needs Patient tolerated PT evaluation well with no significant deficits. No further PT needed at this time. Rehab Potential: Good PT Plan Treatment/Plan Treatment Plan: Discontinue PT Treatment Duration: Oct 21, 2021 Frequency: Safety Risks/Education Patient Education: Gait Training, Steps Teaching Recipient: Patient Teaching Methods: Demonstration, Discussion Response to Teaching: Verbalize Understanding, Return Demonstration Discharge Recommendations Therapy Discharge Recommendati: Post Acute OT Time/GCodes Time In: 1005 Time Out: 1025 Total Billed Treatment Time: 20 Total Billed Treatment Visit, LONI Larson PT Oct 21, 2021 10:33
[2021-10-21 11:20] VITALS: BP 80/52
--- NOTE | 2021-10-21 11:24 | Occupational Therapy Eval ---
OT Evaluation-General/PLF Medical Diagnosis Admission Date Oct 20, 2021 at 15:33 Medical Diagnosis: CVA vs TIA Onset Date: Oct 20, 2021 Therapy Diagnosis Therapy Diagnosis: L hand weakness Height/Weight Height (Feet): 5 Height (Inches): 6.00 Weight (Pounds): 130 Weight (Ounces): 5.0 Precautions Precautions/Isolations: Fall Prevention, Standard Precautions Referral Physician: Dr. Pro Referral Reason: Evaluation/Treatment Medical History Pertinent Medical History: Atrial Fib Additional Medical History afib, DVT, neuropathy, tinnitis Current History ED c/o L hand and wrist weakness and numbness. Social History Home: Multilevel Current Living Status: Alone Entry Into Home: Stairs With Railing Steps Into Home: 3 Steps Inside Home: 10 ADL-Prior Level of Function SCALE: Activities may be completed with or without assistive devices. 1-Apwhorzxfk-tsqlmon completes the activity by him/herself with no assistance from a helper. 5-Set-up or Clean-up Assistance-helper sets up or cleans up; patient completes activity. [place] assists only prior to or following the activity. 4-Supervision or Touching Assistance-helper provides verbal cues and/or touching/steadying and/or contact guard assistance as patient completes activity. Assistance may be provided throughout the activity or intermittently. 3-Partial/Moderate Assistance-helper does LESS THAN HALF the effort. [place] lifts, holds or supports trunk or limbs, but provides less than half the effort. 2-Substantial/Maximal Assistance-helper does MORE THAN HALF the effort. [place] lifts or holds trunk or limbs and provides more than half the effort. 3-Ylyjfaurs-genszv does ALL the effort. Patient does none of the effort to complete the activity. Or, the assistance of 2 or more helpers is required for the patient to complete the activity. If activity was not attempted, code reason: 7-Patient Refused. 9-Not Applicable-not attempted and the patient did not perform the activity before the current illness, exacerbation or injury. 10-Not Attempted due to Environmental Limitations-(lack of equipment, weather restraints, etc.). 88-Not Attempted due to Medical Conditions or Safety Concerns. ADL PLOF Comments Pt reports IND with ADLs and functional mobility at PLOF, no AD. She has a walk in shower with SC. Self Care: Independent Functional Cognition: Independent DME/Equipment: Bath Chair, Shower OT Current Status Subjective Pt in bed, family at bedside. Pt is hoping to be able to discharge soon. Mental Status/Objective Patient Orientation: Person, Place, Time, Situation Current Upper Extremity ROM WFL RUE, WFL LUE shoulder and elbow. LUE wrist: pt unable to extend wrist with fingers extended. She is able to extend wrist with fingers closed. LUE hand: pt able to flex/extend fingers in neutral wrist position. Upper Extremity Coordination Decrease L hand Upper Extremity Sensation slightly duller sensation L hand. Upper Extremity Strength decreased L hand/wrist. ADL-Treatment Eating (QC): 5 (set up , assist to open containers/cut food) Toileting Hygiene (QC): 6 (Pt reports no difficulty.) Other Treatments Pt in bed, agreeable to OT Tx. Pt provided information about PLOF and home set up and participated in UE screen. Pt was seen by PT, independent with ambulation, no AD. Pt's main concern is her L hand function, and some fine motor coordination issues. OT provided pt with moderate resistance sr. director sponge, education provided on sr. director squeezes, finger pinches, and isolating thumb to finger opposition. Pt demonstrated understanding of exercises. OT also educated pt on wrist flexion/extension exercises, instructing her to use light weight as tolerated, she demonstrated understanding. OT informed pt on out patient OT option if she feels like she requires more therapy, she verablized understanding, but indicates she would rather do exercises at her house. Post tx , pt in bed, call light in reach and all needs met Education OT Patient Education: Correct positioning, Modified ADL techniques, Progress toward Goal/Update tx plan, Purpose of tx/functional activities, Rehab process Teaching Recipient: Patient Response to Teaching: Verbalize Understanding OT Residential Goals Medical Imaging Specialist Goals Time Frame: October 30, 2021 Eating (QC): 6 Oral Hygiene (QC): 6 Toileting Hygiene (QC): 6 Shower/Bathe Self (QC): 6 Upper Body Dressing (QC): 6 Lower Body Dressing (QC): 6 On/Off Footwear (QC): 6 Additional Goals: 1-Demonstrate ADL Tasks, 2-Verbalize Understanding, 3-Improv eStrength/Geovanni 1=Demonstrate adherence to instructed precautions during ADL tasks. 2=Patient will verbalize/demonstrate understanding of assistive devices/modifications for ADL. 3=Patient will improve strength/tolerance for activity to enable patient to p erform ADL's. OT Education/Plan Problem List/Assessment Assessment: Decreased Activ Tolerance, Decreased UE Strength, Impaired Cognition, Impaired I ADL's Discharge Recommendations Plan/Recommendations: Continue POC Therapy Discharge Recommendati: Post Acute OT (outpatient OT) Treatment Plan/Plan of Care Patient would benefit from OT for education, treatment and training to promote independence in ADL's, mobility, safety and/or upper extremity function for ADL's. Plan of Care: ADL Retraining, Functional Mobility, UE Funct Exercise/Act, UE Neuromus Re-Ed/Coord Treatment Duration: October 30, 2021 Frequency: 5 times per week Rehab Potential: Good Time/GCodes Start Time: 10:38 Stop Time: 10:55 Total Time Billed (hr/min): 17 Billed Treatment Time 1, MARIBELL LOVELL OT Oct 21, 2021 11:24
[2021-10-21 11:25] VITALS: BP 73/43
[2021-10-21 11:29] VITALS: BP 100/64
[2021-10-21] MEDS ORDERED: WRF5T PO (12:14)
[2021-10-21] MEDS ORDERED: ATOR40TA PO (12:14)
[2021-10-21] MEDS ORDERED: ASPI81TA64 PO (12:14)
--- NOTE | 2021-10-21 16:59 | Consultation-Cardiology ---
HPI-Cardiology Cardiology Consultation: Date of Consultation 10/21/21 Time Seen by a Provider: 09:30 Date of Admission Attending Physician Mee Valente MD Admitting Physician Artur Gatica DO Consulting Physician KATHARINA MOORE MD, MA, FACP, FACC, [facility], CCDS HPI: Chief Complaint: TIA vs CVA Ms. Mckenzie is a 76 yr old female who was admitted to [facility] from the ED with CVA vs TIA. She reports she was in her usual state of health yesterday. She states she laid down in her chair to take a nap and when she woke up she could not move her left hand. She reports she could move her arm, just not her hand. She reports she has regained some movement in her left, hand, but the production designer strength is still diminished. She denies any other symptoms. No vision changes at that time. No facial droop. No difficulty swallowing. No difficulty with speech. She denies any c/o CP, SOB, palpitations. syncope or near syncope. No c/o LE swelling. Her daughter is at the bedside. She does report in May she had central vision loss in her right eye lasting less than an hour. She has not had any episodes since. She is on warfarin with is managed by her PCP, Dr. Gatica. Review of Systems-Cardiology Review of Systems Constitutional: No chills, No fever, No malaise Eyes: As described under HPI Ears/Nose/Throat: No epistaxis, No recent hearing loss Respiratory: As described under HPI Cardiovascular: As described under HPI Gastrointestinal: No constipation, No diarrhea, No nausea, No vomiting Genitourinary: No dysuria, No hematuria : No Musculoskeletal: no symptoms reported Skin: No rash on exposed areas, No ulcerations on exposed areas Psychiatric/Neurological: As described under HPI Hematologic: blood clots EBT-Qsghug-Leolui Hx Patient Social History Smoking Status: Former Smoker Have you traveled recently?: No Alcohol Use?: Yes Pt feels they are or have been: No Immunizations Up To Date Date of Pneumonia Vaccine: Mar 27, 2017 Date of Influenza Vaccine: Mar 27, 2017 Past Medical History PMH As described under Assessment. Family Medical History Family Medical History: She reports her mother had a stroke in her 90's. She reports she has a brother who had a pulmonary embolism Allergies and Home Medications Allergies Coded Allergies: NKANo Known Allergies (Verified Allergy, Unknown, 01/07/07) Patient Home Medication List Home Medication List Reviewed: Yes Aspirin (Children's Aspirin) 81 Mg Tab.chew, 81 MG PO DAILY Prescribed by: MEE VALENTE on 10/21/214 Atorvastatin Calcium (Lipitor) 40 Mg Tablet, 40 MG PO HS Prescribed by: MEE VALENTE on 10/21/21 1214 Calcium Carbonate (Calcium) 500 Mg Calcium (1250 Mg) Tablet, 500 MG PO BID, (Reported) Entered as Reported by: MAYA DALAL on 10/21/21944 Last Action: Reviewed Cholecalciferol (Vitamin D3) (Vitamin D3) 50 Mcg (2000 Unit) Tab.chew, 50 MCG PO DAILY, (Reported) Entered as Reported by: MAYA DALAL on 10/21/21944 Last Action: Reviewed Cyanocobalamin (Vitamin B-12) (Vitamin B-12) 500 Mcg Tablet, 500 MCG PO DAILY, (Reported) Entered as Reported by: CHIQUITA SKINNER on 06/04/15 1243 Last Action: Reviewed Flecainide Acetate (Flecainide Acetate) 50 Mg Tablet, 50 MG PO TID, (Reported) Entered as Reported by: CHIQUITA SKINNER on 06/04/15 1230 Last Action: Reviewed Folic Acid (Folic Acid) 1 Mg Tablet, 1 MG PO DAILY, (Reported) Entered as Reported by: MAYA DALAL on 10/21/21944 Last Action: Reviewed Gabapentin (Gabapentin) 600 Mg Tablet, 900 MG PO BID, (Reported) Entered as Reported by: MIQUEL LIVINGSTON on 06/14/17 1442 Last Action: Reviewed Glucosamine Sulfate 2Kcl (Glucosamine) 1,000 Mg Tablet, 1,000 MG PO DAILY, (Reported) Entered as Reported by: MAYA DALAL on 10/21/21944 Last Action: Reviewed Magnesium Oxide (Magnesium) 400 Mg Capsule, 400 MG PO DAILY, (Reported) Entered as Reported by: CHIQUITA SKINNER on 06/04/15 1243 Last Action: Reviewed Metoprolol Succinate (Metoprolol Succinate) 50 Mg Tab.er.24h, 50 MG PO DAILY, (Reported) Entered as Reported by: MAYA DALAL on 10/21/21944 Last Action: Reviewed Modafinil (Modafinil) 100 Mg Tablet, 100 MG PO SUN @AM, (Reported) Entered as Reported by: MAYA DALAL on 10/21/21944 Last Action: Reviewed Modafinil (Modafinil) 100 Mg Tablet, 100 MG PO DAILY PRN for ALERTNESS/W AKEFULNESS, (Reported) Entered as Reported by: MAYA DALAL on 10/21/21944 Last Action: Reviewed [place]-3 Fatty Acids/Fish Oil ([place] 3 1,000 mg Softgel) 300 Mg-1,000 Mg Capsule, 1 EACH PO DAILY, (Reported) Entered as Reported by: MAYA DALAL on 10/21/21944 Last Action: Reviewed Red Yeast Rice (Red Yeast Rice) 600 Mg Capsule, 600 MG PO BID WITH MEALS, (Reported) Entered as Reported by: OLINDA GARCIA on 10/20/211817 Last Action: Reviewed Warfarin Sodium (Jantoven) 5 Mg Tablet, 2.5 MG PO UD Prescribed by: MEE VALENTE on 10/21/21 121 Discontinued Medications Cholecalciferol (Vitamin D3) (Vitamin D3) 2,000 Unit Capsule, 2,000 UNIT PO DAILY, (Reported) Discontinued Reason: Prescription changed Entered as Reported by: CHIQUITA SKINNER on 06/04/151242 Last Action: Reviewed Folic Acid (Folic Acid) 0.4 Mg Tablet, 0.4 MG PO DAILY, (Reported) Discontinued Reason: Prescription changed Entered as Reported by: OLINDA GARCIA on 10/20/211817 Last Action: Reviewed Glucosa Barraza 2Kcl/Chondroitin Barraza (Glucosamine & Chondroitin Cap) 1 Each Capsule, 1 TAB PO DAILY, (Reported) Discontinued Reason: Prescription changed Entered as Reported by: CHIQUITA SKINNER on 06/04/151242 Last Action: Reviewed Loratadine (Loratadine) 10 Mg Tablet, 10 MG PO HS, (Reported) Discontinued Reason: No Longer Taking Entered as Reported by: CHIQUITA SKINNER on 06/04/151242 Last Action: Discontinued Metoprolol Succinate (Metoprolol Succinate) 50 Mg Tab.er.24h, 50 MG PO DAILY Discontinued Reason: Duplicate Order Prescribed by: EBONY MAK on 06/15/17927 Last Action: Discontinued [place] 3 Polyunsat Fatty Acids (Fish Oil 1,000 mg Capsule) 1,000 Mg Cap, 1,000 MG PO DAILY, (Reported) Discontinued Reason: No Longer Taking Entered as Reported by: CHIQUITA SKINNER on 06/04/15 124 Last Action: Discontinued Red Yeast Rice (Red Yeast Rice) 600 Mg Tablet, 600 MG PO 1130,1800, (Reported) Discontinued Reason: No Longer Taking Entered as Reported by: CHIQUITA SKINNER on 06/04/15 124 Last Action: Discontinued [[place] 3] , 520 MG PO DAILY, (Reported) Discontinued Reason: Duplicate Order Entered as Reported by: OLINDA GARCIA on 10/20/211817 Last Action: Discontinued Physical Exam-Cardiology Physical Exam Vital Signs/I&O 10/21/21 10/21/21 10/21/21 10/21/21 07:00 07:34 08:00 11:20 Temp 36.5 Pulse 52 61 Resp 18 B/P (MAP) 121/71 (88) 80/52 (61) Pulse Ox 98 O2 Delivery Room Air Room Air 10/21/21 10/21/21 10/21/21 11:25 11:29 13:05 Temp 36.0 Pulse 60 Resp 16 B/P (MAP) 73/43 (53) 100/64 (76) Pulse Ox 100 O2 Delivery Room Air 10/21/21 00:00 Intake Total 300 ml Output Total 300 ml Balance 0 ml Capillary Refill : Constitutional: AAO x 3, well-developed, other (thin) HEENT: PERRL, hearing is well preserved, oral hygience is good Neck: No carotid bruit; carotid pulses are 2 + bilaterally Respiratory: No accessory muscle use, No respiratory distress; chest expansion is symmetric, chest is bilaterally symmetric, lungs clear to auscultation Cardiovascular: regular rate-rhythm; No JVD; S1 and S2 Gastrointestinal: No tender; soft, round, audible bowel sounds Extremities: no lower extremity edema bilateral Neurologic/Psychiatric: other (RUE 5/5, LUE mod production designer weakness) Skin: No rash on exposed areas, No ulcerations on exposed areas Data Review Labs Laboratory Tests 10/21/21 05:15: Sodium Level 142, Potassium Level 4.1, Chloride Level 107, Carbon Dioxide Level 26, Anion Gap 9, Blood Urea Nitrogen 19H, Creatinine 0.72, Estimat Glomerular Filtration Rate 86, BUN/Creatinine Ratio 26, Glucose Level 90, Calcium Level 9.0, Magnesium Level 2.2, Triglycerides Level 61, Cholesterol Level 188, LDL Cholesterol Direct 119, VLDL Cholesterol 12, HDL Cholesterol 53 10/21/21 05:43: Prothrombin Time 28.1H, INR Comment 2.6H A/P-Cardiology Assessment/Admission Diagnosis CVA vs TIA - left hand weakness - imrproving - management per stroke team 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 Gatica - therapeutic INR (2.2 on admit, 2.6 this morning) P. Atrial- Flutter - previously following with Dr. Peña - maintained on Flecainide and warfarin H/O PE H/O DVT Reports labile HTN LE neuropathy - Gabapentin Discussion and Recomendations CVA vs TIA - MRI pending Protein S deficiency with h/o PE and DVT - maintained on warfarin - therapeutic INR P.A-flutter - currently SR - continue tele - continue Flecainide Monitor lab closely Further recs will be based on her hospital course We would like to thank Dr Valente for this consult Clinical Quality Measures Stroke: Date of last known well: Oct 20, 2021 Time of last known well: 11:30 KATHARINA MOORE MD FACP FACC CCDS Oct 21, 2021 16:59
--- NOTE | 2021-10-21 18:30 | Discharge Summary ---
Discharge Summary Hospital Course Problems/Dx: (1) Acute ischemic stroke Status: Acute (2) Left hand weakness Status: Acute (3) Protein S deficiency Status: Acute (4) History of atrial fibrillation Status: Acute (5) Anticoagulated Status: Acute Hospital Course Date of Admission: Oct 20, 2021 at 15:33 Admission Diagnosis : Acute ischemic stroke Family Physician/Provider: Aubree Gatica DO Date of Discharge: 10/21/21 Discharge Diagnosis: Acute ischemic stroke Hospital Course: Stefanie Mckenzie is a 76 year old female with PMH protein S deficiency, history of DVT/PE, paroxysmal atrial fibrillation, anticoagulated on coumadin, who presented with left hand weakness. She had a CT which showed no acute abnormalities and no carotid stenosis. She was admitted to observation for stroke like symptoms. She underwent an MRI which confirmed acute ischemic stroke. She was started on aspirin and Lipitor. Her INR was therapeutic at 2.2 on arrival and 2.6 the following morning. She takes her coumadin five days per week. There was concern that she may be dropping subtherapeutic at times so she was instructed to begin taking her coumadin six days per week and only holding it on Tuesday. She should follow up with Dr. Gatica within a week. She will need more frequent INR monitoring while her dose is being adjusted. It may be necessary to increase her goal INR to 2.5-3.5 due to her stroke while on coumadin. She worked with physical and occupational therapy during her stay and was taught exercises to continue at home. She did not want to continue outpatient therapy. She was discharged home in stable condition. Labs and Pending Lab Test: Laboratory Tests 10/21/21 05:15: Sodium Level 142, Potassium Level 4.1, Chloride Level 107, Carbon Dioxide Level 26, Anion Gap 9, Blood Urea Nitrogen 19H, Creatinine 0.72, Estimat Glomerular Filtration Rate 86, BUN/Creatinine Ratio 26, Glucose Level 90, Calcium Level 9.0, Magnesium Level 2.2, Triglycerides Level 61, Cholesterol Level 188, LDL Cholesterol Direct 119, VLDL Cholesterol 12, HDL Cholesterol 53 10/21/21 05:43: Prothrombin Time 28.1H, INR Comment 2.6H Home Meds Active Children's Aspirin (Aspirin) 81 Mg Tab.chew 81 Mg PO DAILY 30 Days Lipitor (Atorvastatin Calcium) 40 Mg Tablet 40 Mg PO HS 30 Days Jantoven (Warfarin Sodium) 5 Mg Tablet 2.5 Mg PO UD 30 Days TAKES 1/2 OF A (5 MG) TABLET GUSMAN,MO,TU,WE,TH,FR @HS Reported [place] 3 1,000 mg Softgel ([place]-3 Fatty Acids/Fish Oil) 300 Mg-1,000 Mg Capsule 1 Each PO DAILY Calcium (Calcium Carbonate) 500 Mg Calcium (1250 Mg) Tablet 500 Mg PO BID Modafinil 100 Mg Tablet 100 Mg PO DAILY PRN Modafinil 100 Mg Tablet 100 Mg PO SUN @AM Metoprolol Succinate 50 Mg Tab.er.24h 50 Mg PO DAILY Folic Acid 1 Mg Tablet 1 Mg PO DAILY Vitamin D3 (Cholecalciferol (Vitamin D3)) 50 Mcg (2000 Unit) Tab.chew 50 Mcg PO DAILY Glucosamine (Glucosamine Sulfate 2Kcl) 1,000 Mg Tablet 1,000 Mg PO DAILY Red Yeast Rice 600 Mg Capsule 600 Mg PO BID WITH MEALS Gabapentin 600 Mg Tablet 900 Mg PO BID TAKES 1 & (600MG) TABS Vitamin B-12 (Cyanocobalamin (Vitamin B-12)) 500 Mcg Tablet 500 Mcg PO DAILY Magnesium (Magnesium Oxide) 400 Mg Capsule 400 Mg PO DAILY Flecainide Acetate 50 Mg Tablet 50 Mg PO TID Assessment/Pt Instructions See instructions Discharge Planning: >30 minutes discharge planning Discharge Instructions Discharge Diet: Low Sodium Diet Activity as Tolerated: Yes Consultations Cardiology Discharge Physical Examination Vital Signs Vital Signs Date Time Temp Pulse Resp B/P (MAP) Pulse Ox O2 Delivery O2 Flow Rate FiO2 10/21/21 13:05 10/21/21 11:29 36.0 60 16 100 Room Air 10/20/21 20:10 0.00 General Appearance: No Apparent Distress, WD/WN HEENT: PERRL/EOMI, Pharynx Normal Respiratory: Lungs Clear, Normal Breath Sounds, No Respiratory Distress Cardiovascular: Regular Rate, Rhythm, No Edema, No Murmur Gastrointestinal: Normal Bowel Sounds, Non Tender, Soft Extremity: Normal Inspection, No Pedal Edema Skin: Normal Color, Warm/Dry Neurologic/Psychiatric: Alert, Oriented x3, Normal Mood/Affect; No Aphasia, No Facial Droop; Motor Weakness (left hand weakness with dorsiflexion), Sensory Deficit (bilateral feet) Allergies: Coded Allergies: NKANo Known Allergies (Verified Allergy, Unknown, 01/07/07) Copy Copies To 1: AUBREE GATICA DO Discharge Summary Date of Admission Oct 20, 2021 at 15:33 Date of Discharge Oct 21, 2021 at 13:15 Discharge Date: Oct 21, 2021 Discharge Time: 13:15 Admission Diagnosis Stroke Consults/Procedures Consulations Cardiology Discharge Diagnosis (1) Acute ischemic stroke Status: Acute (2) Protein S deficiency Status: Acute (3) Left hand weakness Status: Acute (4) History of atrial fibrillation Status: Acute Clinical Quality Measures Stroke: Date of last known well: Oct 20, 2021 Time of last known well: 11:30 MEE VALENTE MD Oct 21, 2021 18:30
== END 2021-10-21 13:15 | disposition home or self-care (01) ==
LOC: EDUNIT# 12:08 → ER 12:10 → 4TH 15:33
PROVIDERS: ADMIT Internal Medicine; ATTEND Internal Medicine
DX: I63.9 Cerebral infarction, unspecified (principal); R29.898 Other symptoms and signs involving the musculoskeletal system; R29.701 NIHSS score 1; R20.0 Anesthesia of skin; D68.59 Other primary thrombophilia; I48.0 Paroxysmal atrial fibrillation; I10 Essential (primary) hypertension; G57.90 Unspecified mononeuropathy of unspecified lower limb; I45.10 Unspecified right bundle-branch block; Z86.718 Personal history of other venous thrombosis and embolism; Z79.01 Long term (current) use of anticoagulants; Z86.711 Personal history of pulmonary embolism
CPT/HCPCS: 70450; 70496; 70498; 70551; 71045; 80048; 80053; 80061; 81000; 82947; 83735; 84484; 85025; 85379; 85610 ×2; 85730; 93005; 93041; 94664; 94760; 97162; 97165; 99284; G0378; G0379; 36415

== ENCOUNTER → 2022-01-18 | Outpatient (CLI) | payer MEDICARE, OTHER ==
[~2022-01-18] MED LIST changes: +ASPI81TA64 PO; +ATOR40TA PO; +CHOL200078 PO; +FOLI1TAB33 PO; +GLUC100016 PO; +MODA100T27 PO; +OMEG1CAP58 PO; +OMEGA 3 PO; +RED600CA2 PO
--- NOTE | 2022-01-19 10:19 | Diagnostic Imaging Report ---
INDICATION: Screening. EXAMINATION: Bilateral 3D digital screening with CAD. COMPARISON: 01/16/2021, 01/06/2020, and 12/19/2018. BREAST DENSITY: 2. FINDINGS: No breast mass or suspicious calcifications. Benign type calcifications persist. No architectural distortion. No spiculated lesion. No findings to suggest malignancy. IMPRESSION: Stable benign findings. ACR BI-RADS Category 2: Benign findings. Result letter will be mailed to the patient. Note: At least 10% of breast cancer is not imaged by mammography. Dictated by: Dictated on workstation # [id number]
== END ==
LOC: RAD 14:38
PROVIDERS: ATTEND Internal Medicine
DX: Z12.31 Encounter for screening mammogram for malignant neoplasm of breast (principal)
CPT/HCPCS: 77063; 77067